=== PATIENT | male | born 1950 | race Caucasian/White ===

== ENCOUNTER 2021-03-20 17:09 | Emergency (ER) | payer MEDICARE, SELFPAY ==
--- NOTE | ~2021-03-20 | CT_ITS ---
EXAM: CT HEAD WITHOUT CONTRAST CT CERVICAL SPINE INDICATION: Reason for Exam s/p fall TECHNIQUE: A noncontrast CT scan was performed from the skull base to the vertex. A noncontrast CT scan of the cervical spine was performed from the base of the skull through T1. Coronal and sagittal reformats were obtained at the acquisition workstation. Dose length product is 1633 mGy-cm. COMPARISON: None FINDINGS: Head: No evidence of acute intracranial hemorrhage or extra-axial blood products. Cystic lesion within the right posterior fossa is most likely an arachnoid cyst. Periventricular and subcortical white matter hypodensities, a nonspecific finding but most commonly due to chronic small vessel ischemic disease. No evidence of territorial infarction. No evidence of midline shift. The ventricles are symmetric in configuration and basal cisterns are patent. The calvarium is intact. The pituitary parenchyma is prominent with thinning of the anterior wall of the sella turcica. Paranasal sinuses are otherwise clear. Mastoid air cells are well aerated and middle ear cavities are clear. Orbits are unremarkable. Cervical Spine: Cervical vertebral bodies are normal in height and alignment. Intervertebral disc spaces are preserved. Facet joints are anatomically aligned bilaterally. Spinous processes are intact and well aligned. No prevertebral soft tissue swelling. The atlantodens intervals within normal limits and demonstrates degenerative change. The craniocervical junction is unremarkable. Minimal degenerative changes throughout the cervical spine. No radiographic evidence of acute fracture or subluxation. Limited views of the lung apices are unremarkable. Paravertebral muscle planes are preserved. No cervical lymphadenopathy. Limited views of the thyroid are unremarkable. CT/CT cervical spine wo con IMPRESSION: 1. No evidence of acute intracranial abnormality. 2. Prominent pituitary parenchyma with thinning of the anterior wall of the sella turcica. This should be further characterized with MRI pituitary protocol. 3. Right posterior fossa arachnoid cyst. 4. Degenerative changes of the cervical spine without CT evidence of acute traumatic injury.
--- NOTE | 2021-03-20 07:46 | ECG_ITS ---
Test Reason : FALL Blood Pressure : / mmHG Vent. Rate : 068 BPM Atrial Rate : 068 BPM P-R Int : 178 ms QRS Dur : 094 ms QT Int : 464 ms P-R-T Axes : 055 003 042 degrees QTc Int : 493 ms Normal sinus rhythm Nonspecific ST abnormality Prolonged QT Abnormal ECG When compared with ECG of 11-JAN-2007 08:40, Nonspecific ST abnormality is now Present Referred By: Flash Bird Electronically Signed By:MARILYN TAN
[2021-03-20 17:17] VITALS: RESP 16; BMI 38.4
--- NOTE | 2021-03-20 17:21 | ED.ALCOHOL ---
HPI - Alcohol General Chief Complaint: ETOH/Substance Use Stated Complaint: FALL/ARM INJURY Time Seen by Provider: 03/20/21 17:21 Source: patient and EMS Mode of arrival: EMS Limitations: no limitations History of Present Illness HPI narrative: Patient toxic aerated brought by EMS for mechanical fall unwitnessed in cervical collar no other injuries noticed Related Data Allergies Allergy/AdvReac Type Severity Reaction Status Date / Time No Known Allergies Allergy Unverified 04/12/20 16:10 Review of Systems Review of Systems: Yes all other systems are reviewed and are negative [facility] Social History Social History Advance Directives: No Advance Directives Information Provided: No Physical Exam Vital Signs: Vital Signs: Last Vital Signs Temp 98 F 03/20/21 20:47 Pulse 65 03/20/21 20:47 Resp 18 03/20/21 20:47 BP 124/65 03/20/21 20:47 Pulse Ox 99 03/20/21 20:47 Body Mass Index 38.4 Const: General: no acute distress, well developed and intoxicated appearing Orientation/consciousness: patient oriented x3 HENMT: Head: Yes normocephalic, Yes atraumatic, No Mello's sign, No raccoon eyes and No scalp tenderness Ears: hearing grossly normal bilaterally Face and sinus: Yes normal facial exam Mouth: Normal oral and palatal mucosa present Eyes: General: appearance normal, both eyes and all related structures Neck: Neck: Yes full ROM and No tender Chest: Chest palpation & inspection: normal inspection of the chest and normal palpation of entire chest wall Resp: Effort & Inspection: normal respiratory effort and able to speak in complete sentences Auscultation: clear to auscultation bilaterally Cardio: Palpation: normal PMI Rate: regular rate Rhythm: regular rhythm Heart sounds: S1 normal heart sound present and S2 normal heart sound present Peripheral pulses: Peripheral pulses 2+ throughout GI: Inspection: Yes normal to inspection Palpation (GI): Soft to palpation and nontender Back/Spine/Pelvis: Cervical Spine: normal cervical lordosis Thoracic/Lumbar Spine: No thoracic spinal tenderness and No lumbar spinal tenderness Skin: General skin exam: no rashes or lesions noted Neuro: General: patient oriented x3, moves all extremities, no focal motor deficits and CN's II-XI intact bilaterally Extrem: General: Yes normal to inspection and Yes full ROM MDM - Alcohol MDM Narrative Medical decision making narrative: Patient's real mechanical fall intoxicated CT scan of the C-spine and head is negative for any acute patient during stay in the ER became sober able to ambulate in a steady gait will discharge patient home Differential Diagnosis Differential diagnosis: Likely alcohol intoxication Discharge Plan Discharge Clinical Impression: Alcoholic intoxication Patient Disposition: Home, Self-Care Instructions: Alcohol Intoxication (ED) Additional Instructions: Stop drinking alcohol and follow up with detox Interventions: ED Discharge Assessment Last Done: 03/20/21 22:40 Discharge Date/Time: 03/20/21 22:41
[2021-03-20 17:29] VITALS: BP 112/62; PULSE 72; RESP 16; TEMP 37.1; O2SAT 98
[2021-03-20 20:47] VITALS: BP 124/65; PULSE 65; RESP 18; TEMP 36.6; O2SAT 99
--- NOTE | 2021-03-20 22:05 | PC.NURSE ---
Patient ambulated, unsteady gait. WCTM
== END 2021-03-20 22:41 | disposition home or self-care (01) ==
PROVIDERS: Emergency Provider Internal Medicine
DX: S19.9XXA Unspecified injury of neck, initial encounter (principal); G44.309 Post-traumatic headache, unspecified, not intractable; F10.129 Alcohol abuse with intoxication, unspecified; W01.0XXA Fall on same level from slipping, tripping and stumbling without subsequent striking against object, initial encounter; Y93.9 Activity, unspecified; Y92.9 Unspecified place or not applicable; Y99.9 Unspecified external cause status; Y90.9 Presence of alcohol in blood, level not specified
CPT/HCPCS: 70450; 72125; 93005; 99284

== ENCOUNTER 2021-08-07 10:25 | Emergency (ER) | payer OTHER, SELFPAY ==
[2021-08-07 10:29] VITALS: BP 180/98; PULSE 91; RESP 19; TEMP 36.6; O2SAT 98; BMI 41.0
[2021-08-07 11:17] LABS: COVID-19 Test Positive (Negative); IDNOW Serial# 9DD0AD1C
== END 2021-08-07 14:49 | disposition left against medical advice (07) ==
PROVIDERS: Emergency Provider Emergency Medicine
DX: U07.1 COVID-19 (principal); R19.7 Diarrhea, unspecified; R51.9 Headache, unspecified; I10 Essential (primary) hypertension
CPT/HCPCS: 87635; 99282; 99283

== ENCOUNTER 2021-08-08 05:17 | Emergency (ER) | payer OTHER, SELFPAY ==
--- NOTE | ~2021-08-08 | XR_ITS ---
EXAMINATION: XR CHEST CLINICAL INFORMATION: Upper respiratory symptoms. Covid positive. COMPARISON: CT chest 04/26/2013 TECHNIQUE: Frontal view of the chest was obtained. FINDINGS: The cardiomediastinal silhouette is within normal limits. The lungs are well expanded. No consolidation or effusion. XR/XR chest 1V IMPRESSION: No acute pulmonary findings.
[2021-08-08 05:24] VITALS: BP 182/92; PULSE 87; RESP 15; TEMP 37; O2SAT 98; BMI 41.0
[2021-08-08 05:38] LABS: Basophils Percent Auto 0.5 % (0-2); Eosinophils Absolute Auto 0.4 X10*3/uL (0.0-0.4); Eosinophils Percent Auto 9.2 % (0-4); Hematocrit 36.7 % (42.0-52.0); Hemoglobin 11.2 g/dl (14.0-18.0); Imm Gran Abs Auto 0.01 X10*3/uL (0.00-0.03); Imm Gran Pct Auto 0.3 % (0.0-0.4); Lymphocytes Absolute Auto 1.4 X10*3/uL (1.2-4.9); Lymphocytes Percent Auto 35.6 % (20-40); MANUAL DIFF FLAG NO; Mean Corpuscular HGB Conc 30.5 g/dl (31.0-36.0); Mean Corpuscular Hemoglobin 24.1 pg (27.0-33.0); Mean Corpuscular Volume 78.9 fL (80.0-98.0); Mean Platelet Volume 8.6 fL (9.4-12.4); Monocytes Absolute Auto 0.6 X10*3/uL (0.1-1.2); Monocytes Percent Auto 15.3 % (2-11); Neutrophils Absolute Auto 1.5 x10*3/uL (2.0-8.3); Neutrophils Percent Auto 39.1 % (45-73); Platelet Count 185 X10*3/uL (160-400); Red Blood Count 4.65 X10*6/uL (4.60-5.80); Red Cell Distribution Width 17.3 % (11.0-16.0); White Blood Count 3.8 X10*3/uL (4.8-10.8)
[2021-08-08 05:55] LABS: Alanine Aminotransferase 32 U/L (0-40); Albumin Level 4.3 g/dL (3.5-5.0); Alkaline Phosphatase 63 U/L (39-117); Anion Gap 14 (12-20); Aspartate Amino Transferase 65 U/L (5-37); Bilirubin Total 0.8 mg/dL (0.0-1.0); Blood Urea Nitrogen 11 mg/dL (9-16); Calcium 9.2 mg/dL (8.4-10.2); Carbon Dioxide 22 mmol/L (22-29); Chloride 106 mmol/L (96-108); Creatinine Clr Calc Pharmacy 102.7; Estimated Glomerular Filt Rate > 60; Glucose Random 126 mg/dL (60-115); Potassium 4.1 mmol/L (3.3-5.1); Sodium 138 mmol/L (135-145)
--- NOTE | 2021-08-08 08:40 | ED_ITS ---
HPI - URI/Sore Throat General Chief Complaint: Upper Respiratory Symptoms Stated Complaint: COVID+ /12, headache, fever Time Seen by Provider: 08/08/21 08:04 Source: patient Mode of arrival: ambulatory History of Present Illness HPI Narrative: 71-year-old male with PMHx HTN, COVID-19 positive yesterday, presented to the ED complaining of subjective fever, headache, sore throat, nonproductive cough, and mild chest discomfort when coughing. Denies SOB, chills, ear pain, pedal edema, history of clots, recent travel MD elicited complaint: fever and sore throat Onset (ago): day(s) Consistency: constant Related Data Previous Rx's Medication Instructions Recorded benzonatate 200 mg capsule 200 mg PO TID PRN #20 cap 08/08/21 Allergies Allergy/AdvReac Type Severity Reaction Status Date / Time No Known Allergies Allergy Unverified 04/12/20 16:10 Review of Systems Review of Systems: Constitutional: +Subj Fever, No Chills ENT/Mouth: No Ear Pain, No Nasal Congestion, No Sinus Pain, No Hoarseness, + sore throat, + Rhinorrhea, No Swallowing Difficulty Cardiovascular: + Chest Pain when coughing, No SOB Respiratory: + Cough, No Sputum, No Wheezing Gastrointestinal: No Nausea, No Vomiting, No Diarrhea, No Abdominal pain Genitourinary:No Dysuria, No Urinary Frequency, No Hematuria, No Flank Pain Musculoskeletal: No joint pain, No Myalgias, No Joint Swelling Skin: No Skin Lesions, No rash Neuro: No Weakness Yes all other systems are reviewed and are negative [facility] Past Medical History Attestation statement: The following information was validated with the patient. Medical History HTN (hypertension) Social History Social History Advance Directives: Yes Advance Directives Information Provided: Yes Advance Directives on File: No Physical Exam Vital Signs: Vital Signs: Last Vital Signs Temp 98.6 F 08/08/21 05:24 Pulse 87 08/08/21 05:24 Resp 15 08/08/21 05:24 BP 182/92 H 08/08/21 05:24 Pulse Ox 98 01/13/22 05:24 BMI result Body Mass Index 41.0 Const: General: cooperative, healthy appearing and no acute distress Orientation/consciousness: patient oriented x3 Limitations: no limitations HENMT: Head: Yes normal to inspection Ears: hearing grossly normal bilaterally General nose exam: Normal external nose present Face and sinus: Yes normal facial exam Throat: Yes posterior oropharynx normal, Yes tonsils normal, Yes uvula midline and No peritonsillar mass Eyes: General: appearance normal, both eyes and all related structures EOM: EOMs intact bilaterally Neck: Neck: Yes normal visual inspection and Yes no meningeal signs Resp: Effort & Inspection: normal respiratory effort and no respiratory distress Auscultation: clear to auscultation bilaterally, no rales, no rhonchi and no wheezes Cardio: Rate: regular rate Heart sounds: S1 normal heart sound present and S2 normal heart sound present GI: Inspection: Yes normal to inspection Skin: Rashes: no rashes Wounds: no wounds Neuro: General: patient oriented x3 and no meningeal signs Gait exam (Neuro): Normal gait present Extrem: General: Yes normal to inspection and Yes no pedal edema Course Course Course Narrative: -0840--chronic leukopenia. H&H stable. Labs otherwise unremarkable XR chest 1V IMPRESSION: No acute pulmonary findings. >> results discussed with patient including worrisome signs and symptoms and strict return precautions. He verbalized understanding & feels safe for discharge home at this time MDM - URI/Sore Throat MDM Narrative Medical decision making narrative: 71-year-old male with PMHx HTN, COVID-19 positive yesterday, presented to the ED complaining of subjective fever, headache, sore throat, nonproductive cough, and mild chest discomfort when coughing. On exam vital signs stable, NAD, nontoxic appearing, lungs CTA, no pedal edema. Likely COVID-19 symptoms. Rule COVID pneumonia. Low concern for bacterial infection, or PE without tachycardia or hypoxia. Symptoms atypical for ACS Plan: EKG, labs, CXR Differential Diagnosis Differential diagnosis: Likely upper respiratory infection and viral infection Medical Records Attestation: I reviewed the patient's medical records. Lab Data Attestation: I reviewed the patient's lab results. Result diagrams: 08/08/21 05:33 08/08/21 05:33 Labs: Lab Results 01/13/22 01/13/22 Range/Units 05:33 05:33 WBC 3.8 L (4.8-10.8) X10*3/uL RBC 4.65 (4.60-5.80) X10*6/uL Hgb 11.2 L (14.0-18.0) g/dl Hct 36.7 L (42.0-52.0) % MCV 78.9 L (80.0-98.0) fL MCH 24.1 L (27.0-33.0) pg MCHC 30.5 L (31.0-36.0) g/dl RDW 17.3 H (11.0-16.0) % Plt Count 185 (160-400) X10*3/uL MPV 8.6 L (9.4-12.4) fL Immature Gran % (Auto) 0.3 (0.0-0.4) % Neut % (Auto) 39.1 L (45-73) % Lymph % (Auto) 35.6 (20-40) % Waller % (Auto) 15.3 H (2-11) % Eos % (Auto) 9.2 H (0-4) % Baso % (Auto) 0.5 (0-2) % Lymph # (Auto) 1.4 (1.2-4.9) X10*3/uL Waller # (Auto) 0.6 (0.1-1.2) X10*3/uL Eos # (Auto) 0.4 (0.0-0.4) X10*3/uL Baso # (Auto) 0.0 (0.0-0.2) X10*3/uL Abs Immat Gran (auto) 0.01 (0.00-0.03) X10*3/uL Absolute Neuts (auto) 1.5 L (2.0-8.3) x10*3/uL Absolute Nucleated RBC 0.000 (0.0-0.012) X10*3/uL Nucleated RBC % (auto) 0.0 (0.0-0.2) /100WBC Sodium 138 (135-145) mmol/L Potassium 4.1 (3.3-5.1) mmol/L Chloride 106 (96-108) mmol/L Carbon Dioxide 22 (22-29) mmol/L Anion Gap 14 (12-20) BUN 11 (9-16) mg/dL Creatinine 0.84 (0.5-1.4) mg/dL Estim Creat Clear Calc 102.7 Estimated GFR > 60 Random Glucose 126 H (60-115) mg/dL Calcium 9.2 (8.4-10.2) mg/dL Total Bilirubin 0.8 (0.0-1.0) mg/dL AST 65 H (5-37) U/L ALT 32 (0-40) U/L Alkaline Phosphatase 63 (39-117) U/L Total Protein 8.0 (6.5-8.0) g/dL Albumin 4.3 (3.5-5.0) g/dL ECG Data Attestation: I personally reviewed and interpreted this ECG as follows: ECG interpretation date: 08/08/21 ECG interpretation time: 08:57 Interpretation: EKG normal sinus rhythm rate of 72. Pr interval 152. QTC 460. No STEMI/nonischemic Discharge Plan Discharge Clinical Impression: COVID-19 Patient Disposition: Home, Self-Care Instructions: COVID-19 (Coronavirus Disease 2019) (ED) Additional Instructions: Your blood work and chest x-ray were unremarkable. At this time you will be okay for discharge. Please self isolate for 10-14 days. Do not expose yourself to others. You may not go to work or school. Please continue to follow cold instructions and wash your hands frequently. You may take Tylenol / Motrin as directed on the bottle for pain or fever. If you have constant or persistent shortness of breath, fever unresolved with medications, chest pain, or your unable to eat or drink please return to the ED CDC Guidelines for home isolation: - Stay away from others - WEAR A MASK if you are sick AND STAY HOME - Cover your mouth and nose with a tissue when you cough or sneeze. Dispose of tissues in a lined trash can and wash your hands immediately with soap and water for at least 20 seconds. If soap and water are not available, clean hands with alcohol-based hand fire code inspector that contains at least 60% alcohol. - Clean your hands often with soap and water for at least 20 seconds - Avoid touching your eyes, nose and mouth with unwashed hands - Do not share dishes, drinking glasses, cups, eating utensils, towels, or bedding with other people in your home. After using these items, wash them thoroughly with soap and water or put in the busperson. - Clean high-touch surfaces in your isolation area ( sick room and bathroom) every day; let a caregiver clean and disinfect high-touch surfaces in other areas of the home. Clean the area or item with soap and water or another detergent if it is dirty. Then, use a household disinfectant. - Limit contact with pets and animals: If you must care for a pet, wash your hands before and after interacting with them) Nava an?lisis de diego y la radiograf?a de t?rax fueron normales. En nataliia momento estar? usman para el madeleine. A?slese phi 10-14 d?as. No te expongas a los dem?s. Es posible que no vaya al trabajo ni a la escuela. Contin?e siguiendo las instrucciones en fr?o y l?vese las gene con frecuencia. Puede tigist Tylenol/Motrin oksana se indica en el frasco para el dolor o la fiebre. Si tiene dificultad para respirar lara o persistente, fiebre que no se resuelve con medicamentos, dolor en el pecho o no puede comer o beber, regrese al servicio de urgencias. Pautas de los CDC para el aislamiento en el hogar: - Mant?ngase alejado de los dem?s. - USE ASHLEY MASCARILLA si est? enfermo Y QU?DESE EN CASA - C?brase la boca y la nariz con un pa?uelo desechable al toser o estornudar. Deseche los pa?uelos en un bote de basura forrado y l?vese las gene inmediatamente con agua y jab?n phi al menos 20 segundos. Si no hay agua y jab?n disponibles, l?vese las gene con un desinfectante para gene a base de a lcohol que contenga al menos un 60 % de alcohol. - L?vese las gene con frecuencia con agua y jab?n phi al menos 20 segundos. - Evite tocarse los ojos, la nariz y la boca con las gene sin marquis - No comparta platos, vasos, tazas, utensilios para comer, toallas o ropa de cama con otras personas en nava hogar. Despu?s de usar estos art?culos, l?velos usman con agua y jab?n o col?quelos en el lavavajillas. - Limpie las superficies de alto contacto en nava ?aarti de aislamiento ( cuarto de enfermos y ba?o) todos los d?as; permita que un cuidador limpie y desinfecte las superficies de alto contacto en otras ?reas del hogar. Limpie el ?aarti o art?culo con agua y jab?n u otro detergente si est? sucio. Luego, use un desinfectante dom?stico. - Limite el contacto con mascotas y animales: si debe cuidar ashley mascota, l?vese las gene antes y despu?s de interactuar con ellos) Prescriptions: New benzonatate 200 mg capsule 200 mg PO TID PRN (Reason: cough) Qty: 20 RF: 0 Referrals: Physician,Unknown J [Primary Care Provider] - 3 days Print Language: Portuguese
--- NOTE | 2021-08-08 08:41 | ECG_ITS ---
Test Reason : chest pain Blood Pressure : / mmHG Vent. Rate : 072 BPM Atrial Rate : 072 BPM P-R Int : 152 ms QRS Dur : 092 ms QT Int : 428 ms P-R-T Axes : 033 056 017 degrees QTc Int : 468 ms Normal sinus rhythm Normal ECG When compared with ECG of 20-MAR-2021 18:11, No significant change was found Referred By: Rosa Maria Vila Electronically Signed By:NOEMY FORD
--- NOTE | 2021-08-08 09:45 | PC.NURSE ---
PT EVALUATED BY PROVIDER. EKG COMPLETED XRAY COMPLETED. PT AWAKE, ALERT AND ORIENTED X3. SKIN WARM AND DRY. RESP UNLABORED. SPEAKING IN FULL CLEAR SENTENCES. NO SOB, NO RESP DISTRESS. PLAN IS FOR DC HOME. PT AGREEABLE TO PLAN.
== END 2021-08-08 09:50 | disposition home or self-care (01) ==
PROVIDERS: Emergency Provider Emergency Medicine
DX: U07.1 COVID-19 (principal); I10 Essential (primary) hypertension
CPT/HCPCS: 36415; 71045; 80053; 85025; 93005; 99283

== ENCOUNTER 2021-12-02 06:23 | Emergency (ER) | payer OTHER, SELFPAY ==
--- NOTE | ~2021-12-02 | CT_ITS ---
EXAMINATION: CT ABDOMEN AND PELVIS WITHOUT CONTRAST CLINICAL INFORMATION: Back pain. Abnormal aorta on lumbar spine x-ray. COMPARISON: Previous lumbar spine x-ray from earlier the same day TECHNIQUE: Multidetector volumetric imaging was performed from the superior aspect of the liver through the pubic symphysis. Sagittal and coronal reformatted images were obtained on the technologist's workstation. This CT examination was performed using dose optimization techniques as appropriate, variously including the following: *Automated exposure control *Adjustment of mA and/or kV according to patient size (this includes techniques or standardized protocols for targeted exams where dose is matched to indication/reason for exam; i.e. extremities or head) *Use of iterative reconstruction technique DLP: 1198 mGy-cm FINDINGS: LUNG BASES: The visualized lung bases are clear. The heart is enlarged. LIVER, GALLBLADDER, AND BILIARY TREE: The contour of the liver is slightly irregular and scalloped suggestive of mild cirrhotic change. No focal liver lesion. Normal gallbladder. No biliary duct dilatation. PANCREAS: Unremarkable. SPLEEN: Upper normal in size measuring 13 cm in length. ADRENAL GLANDS: Unremarkable. KIDNEYS AND URETERS: 2 cm low-attenuation lesion in the lower pole probably representing a cyst. No imaging follow-up. BLADDER: Not optimally distended. The prostate gland is enlarged and protrudes into the base of the bladder. It is difficult to exclude mild diffuse bladder wall thickening. GASTROINTESTINAL TRACT: The appendix is enlarged and measures 1.5 cm in diameter. The appendix is heterogeneous in attenuation. There is stranding of the periappendiceal fat. There are prominent small bowel mesentery lymph nodes or periappendiceal lymph nodes seen in the right lower quadrant. The small and large bowel is unremarkable. The appendix is unremarkable. No ascites or free air is seen. ABDOMINAL WALL: There is diastasis of the rectus muscles. There is a small right inguinal hernia containing fat LYMPH NODES: Normal. VASCULAR: There is atherosclerotic disease of the abdominal aorta. No aneurysm is seen. There is mild ectasia of the abdominal aorta measuring maximum 2.6 cm. There is ectasia of the bilateral common iliac arteries measuring 1.8 cm on the right and 1.7 cm on the left. PELVIC VISCERA: The prostate gland is enlarged. The prostate gland measures 5.7 x 5.4 cm in AP and transverse dimension. OSSEOUS STRUCTURES: There is a mild to moderate recent appearing L1 vertebral body compression fracture. There are degenerative changes of the spine. CT/CT abdomen pelvis wo con IMPRESSION: No abdominal aortic aneurysm. Ectasia of the bilateral common iliac arteries. Abnormal appearing appendix. Appendicitis and neoplastic process involving the appendix should be considered. Mild to moderate recent appearing L1 vertebral body compression fracture. Enlarged prostate gland that protrudes into the base of the bladder. Left renal cyst. Mild cirrhotic changes of the liver. Findings were communicated to Dr. Con Chapin by telephone on 12/02/2021 at 11:00 AM. Fleischner guidelines were followed.
--- NOTE | ~2021-12-02 | XR_ITS ---
EXAMINATION: XR LUMBOSACRAL SPINE CLINICAL INFORMATION: Back pain. COMPARISON: CT of the chest done on 04/26/2013. TECHNIQUE: Three views of the lumbosacral spine. FINDINGS: Severe compression fracture of L1 vertebral body, new since prior study dated 04/26/2013, of indeterminate etiology and chronicity. There is subtle radiographic evidence of retropulsion present involving the posterior superior aspect of the vertebral body. The posterior appendages appear to be intact. The paraspinal soft tissues are unremarkable. Mild diffuse osteopenia and mild-moderate degenerative disc disease related changes are present throughout the entire lumbar spine. Partially visualized aorta appears abnormally enlarged and shows atherosclerotic calcifications, not optimally included within the [id number], accordingly the size of the aorta is not evaluated. XR/XR lumbar spine 2-3V IMPRESSION: 1. Severe compression fracture of L1 vertebral body, new since prior study dated 04/26/2013, of indeterminate etiology and chronicity. 2. Mild diffuse osteopenia and mild to moderate degenerative spondylosis. 3. Abnormal appearance of the partially included aorta, the size of the aorta is not evaluated since not optimally included within the [id number].
[2021-12-02 06:46] VITALS: BP 170/100; BP 183/89; PULSE 70; PULSE 90; RESP 16; TEMP 36.8; O2SAT 97; BMI 35.8
[2021-12-02 07:07] VITALS: BP 160/84; PULSE 79; RESP 18; TEMP 37.2; O2SAT 97
--- NOTE | 2021-12-02 07:07 | ED.BACK ---
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 Low back pain started 10 days ago, pain is described as dull aching pain localized to the lower lumbar back area, patient declined any recent trauma or falls, pain is localized to the low back radiating to the right knee area, declined any urinary or stool incontinence, no weakness, no numbness or sensation change in the legs. No fever, no chills, no abdominal pain, normal bowel movement, no dysuria, no urinary frequency. Normally ambulate at home using a cane. He did not try any [id number] medication to control his pain. Related Data Previous Rx's Medication Instructions Recorded benzonatate 200 mg capsule 200 mg PO TID PRN #20 cap 08/08/21 Allergies Allergy/AdvReac Type Severity Reaction Status Date / Time No Known Allergies Allergy Unverified 04/12/20 16:10 Review of Systems Review of Systems: All other systems are reviewed and are negative Constitutional: Reports as per HPI and Reports no additional constitutional complaints Eyes: Reports as per HPI and Reports no additional eye complaints Reports system reviewed and no additional complaints, except as documented Cardiovascular: Reports as per HPI and Reports no additional cardiovascular complaints Respiratory: Reports as per HPI and Reports no additional respiratory complaints Gastrointestinal: Reports as per HPI and Reports no additional gastrointestinal complaints Genitourinary: Reports no additional female genitourinary complaints Musculoskeletal: Reports no additional musculoskeletal complaints Skin/Breast: Reports system reviewed and no additional complaints, except as docu Psychiatric: Reports no additional psychiatric complaints Endocrine: Reports no additional endocrine complaints Hematologic/Lymphatic: Reports no additional hematologic/lymphatic complaints Allergic/Immunologic: Reports no additional allergic/immunologic complaints Reports system reviewed and no additional complaints, except as documented and Reports Abnormal speech present [facility] Past Medical History Medical History (Updated 12/02/21 @ 12:30 by Socorro Auguste MD) Abnormal CT scan, gastrointestinal tract HTN (hypertension) Social History Social History Advance Directives: No Advance Directives Information Provided: No Physical Exam Vital Signs: Vital Signs: Last Vital Signs Temp 98.9 F 12/02/21 12:09 Pulse 75 12/02/21 12:09 Resp 18 12/02/21 12:09 BP 145/83 H 12/02/21 12:09 Pulse Ox 97 12/02/21 12:09 BMI result Body Mass Index 35.8 Vital signs have been reviewed as appeared to be correct. Blood pressure normal. Heart rate normal. Respiration rate normal. Temperature normal. Oxygen saturation normal. Appearance: Alert. Oriented X3. No acute distress. Head: Normal external exam. Normocephalic. Atraumatic. No Mello signs noted. No raccoon eyes noted Eyes: PERRLA. EOMI. Conjunctiva and sclera normal. Eyelids normal. ENT: TM's Normal. Pharynx normal. Uvula midline. Moist mucous membranes. No trismus noted. No drooling noted. No muffled voice noted. Neck: Normal inspection. Neck supple. FROM. No adenopathy. Thyroid Normal. No meningeal signs. No neck mass noted. CVS: Normal heart rate and rhythm. Heart sound normal. No murmurs noted. Pulses normal throughout. Respiratory: No respiratory distress. Painless inspiration. Breath sounds normal. No wheezes/rales/rhonchi noted. Chest nontender. No accessory muscle usage noted or decreased air movement noted. Abdomen: Soft and nontender. Bowel sounds normal in all 4 quadrants. No distention noted. No organomegaly noted. No visible injury noted. Back: No CVA tenderness. Full range of motion noted. Skin: Skin warm and dry. Normal skin color. Normal skin turgor. No rashes/lesions/lacerations noted. Extremities: No lower extremity edema. Extremities exhibit normal range of motion. Extremities nontender. Neuro: Oriented X 3. Cranial nerve exam: II-XII are grossly intact No motor deficit. No sensory deficit. Reflexes normal. Perianal sensation is intact Course Course Course Narrative: Assessment and plan. 71-year-old male came in with low back pain for 10 days, x-ray and CT showed multiple lumbar spine compression fracture, patient also showed abnormal appendix on the CT, patient was evaluated by Dr. Conklin from surgery in the emergency department and he recommended to discharge patient home and follow up as an outpatient. Patient has a normal neuro exam, no neuro deficit. Recommended NSAIDs/Tylenol p.r.n. pain. MDM - Back Pain/Injury Medical Records Attestation: I reviewed the patient's medical records. Lab Data Attestation: I reviewed the patient's lab results. Result diagrams: 12/02/21 07:48 12/02/21 07:48 Labs: Lab Results 12/02/21 12/02/21 12/02/21 Range/Units 07:48 07:48 07:51 WBC 5.9 (4.8-10.8) X10*3/uL RBC 4.24 L (4.60-5.80) X10*6/uL Hgb 10.4 L (14.0-18.0) g/dl Hct 32.9 L (42.0-52.0) % MCV 77.6 L (80.0-98.0) fL MCH 24.5 L (27.0-33.0) pg MCHC 31.6 (31.0-36.0) g/dl RDW 16.8 H (11.0-16.0) % Plt Count 228 (160-400) X10*3/uL MPV 10.1 (9.4-12.4) fL Immature Gran % (Auto) 0.3 (0.0-0.4) % Neut % (Auto) 71.5 (45-73) % Lymph % (Auto) 13.3 L (20-40) % [place] % (Auto) 11.9 H (2-11) % Eos % (Auto) 2.7 (0-4) % Baso % (Auto) 0.3 (0-2) % Lymph # (Auto) 0.8 L (1.2-4.9) X10*3/uL [place] # (Auto) 0.7 (0.1-1.2) X10*3/uL Eos # (Auto) 0.2 (0.0-0.4) X10*3/uL Baso # (Auto) 0.0 (0.0-0.2) X10*3/uL Abs Immat Gran (auto) 0.02 (0.00-0.03) X10*3/uL Absolute Neuts (auto) 4.2 (2.0-8.3) x10*3/uL Absolute Nucleated RBC 0.000 (0.0-0.012) X10*3/uL Nucleated RBC % (auto) 0.0 (0.0-0.2) /100WBC Sodium 134 L (135-145) mmol/L Potassium 4.2 (3.3-5.1) mmol/L Chloride 101 (96-108) mmol/L Carbon Dioxide 24 (22-29) mmol/L Anion Gap 13 (12-20) BUN 8 L (9-16) mg/dL Creatinine 0.67 (0.5-1.4) mg/dL Estim Creat Clear Calc 119.8 Estimated GFR > 60 Random Glucose 118 H (60-115) mg/dL Calcium 8.9 (8.4-10.2) mg/dL Lipase 19 (8-78) U/L Urine Color YELLOW Urine Appearance HAZY Urine pH 6.0 (5.0-8.0) Ur Specific [place] >= 1.030 H (1.005-1.025) Urine Protein NEG (NEG-TRACE) MG/DL Urine Glucose (UA) NEG (NEG) MG/DL Urine Ketones 5 (NEG) MG/DL Urine Blood 2+ H (NEG) Urine Nitrite NEG (NEG) Ur Leukocyte Esterase NEG (NEG) Urine RBC 10-14 H (0) /HPF Urine WBC 0 (0-4) /HPF Ur Squamous Epith Cells 1+ /LPF Urine Bacteria NONE /LPF Urine Mucus 1+ /LPF Imaging Data Lumbar spine x-ray: Attestation: I personally reviewed and interpreted this imaging study as follows: Radiologist's impression: 1. Severe compression fracture of L1 vertebral body, new since prior study dated 04/26/2013, of indeterminate etiology and chronicity. 2. Mild diffuse osteopenia and mild to moderate degenerative spondylosis. 3. Abnormal appearance of the partially included aorta, the size of the aorta is not evaluated since not optimally included within the [id number]. CT scan - abdomen: Attestation: I personally reviewed and interpreted this imaging study as follows: Radiologist's impression: No abdominal aortic aneurysm. Ectasia of the bilateral common iliac arteries. Abnormal appearing appendix. Appendicitis and neoplastic process involving the appendix should be considered. Mild to moderate recent appearing L1 vertebral body compression fracture. Enlarged prostate gland that protrudes into the base of the bladder. Left renal cyst. Mild cirrhotic changes of the liver.? ? Discharge Plan Discharge Clinical Impression: Abnormal CT scan, gastrointestinal tract, Back pain, Closed compression fracture of L1 vertebra Patient Disposition: Home, Self-Care Instructions: Acute Low Back Pain (ED) Prescriptions: No Action benzonatate 200 mg capsule 200 mg PO TID PRN (Reason: cough) Qty: 20 0RF Referrals: Physician,Unknown J [Primary Care Provider] - Silviano Conklin MD [Physician] -
[2021-12-02] MEDS: Acetaminophen 325 MG TABLET 650 MG PO (07:16)
[2021-12-02 08:03] LABS: MANUAL DIFF FLAG NO
[2021-12-02 08:06] LABS: Appearance Urine HAZY; Color Urine YELLOW; Glucose Urine UA NEG (NEG); Leukocyte Esterase Urine NEG (NEG); Nitrite Urine NEG (NEG); Specific Gravity - Urine >= 1.030 (1.005-1.025); UACC Culture Trigger NO; Urine Blood 2+ (NEG); Urine Ketones 5 MG/DL (NEG); Urine Protein NEG (NEG-TRACE)
[2021-12-02 08:07] LABS: Basophils Percent Auto 0.3 % (0-2); Eosinophils Absolute Auto 0.2 X10*3/uL (0.0-0.4); Eosinophils Percent Auto 2.7 % (0-4); Hematocrit 32.9 % (42.0-52.0); Hemoglobin 10.4 g/dl (14.0-18.0); Imm Gran Abs Auto 0.02 X10*3/uL (0.00-0.03); Imm Gran Pct Auto 0.3 % (0.0-0.4); Lymphocytes Absolute Auto 0.8 X10*3/uL (1.2-4.9); Lymphocytes Percent Auto 13.3 % (20-40); Mean Corpuscular HGB Conc 31.6 g/dl (31.0-36.0); Mean Corpuscular Hemoglobin 24.5 pg (27.0-33.0); Mean Corpuscular Volume 77.6 fL (80.0-98.0); Mean Platelet Volume 10.1 fL (9.4-12.4); Monocytes Absolute Auto 0.7 X10*3/uL (0.1-1.2); Monocytes Percent Auto 11.9 % (2-11); Neutrophils Absolute Auto 4.2 x10*3/uL (2.0-8.3); Neutrophils Percent Auto 71.5 % (45-73); Platelet Count 228 X10*3/uL (160-400); Red Blood Count 4.24 X10*6/uL (4.60-5.80); Red Cell Distribution Width 16.8 % (11.0-16.0); White Blood Count 5.9 X10*3/uL (4.8-10.8)
[2021-12-02 08:19] LABS: Anion Gap 13 (12-20); Blood Urea Nitrogen 8 mg/dL (9-16); Calcium 8.9 mg/dL (8.4-10.2); Carbon Dioxide 24 mmol/L (22-29); Chloride 101 mmol/L (96-108); Creatinine Clr Calc Pharmacy 119.8; Estimated Glomerular Filt Rate > 60; Glucose Random 118 mg/dL (60-115); Lipase 19 U/L (8-78); Potassium 4.2 mmol/L (3.3-5.1); Sodium 134 mmol/L (135-145)
[2021-12-02 08:19] LABS: Mucus Urine 1+ /LPF; Squamous Epithelial Cell Urine 1+ /LPF; WBC Urine 0 /HPF (0-4)
[2021-12-02 09:21] VITALS: BP 169/93; PULSE 76; RESP 19; TEMP 37.2; O2SAT 95
[2021-12-02 10:45] VITALS: BP 174/83; PULSE 72; RESP 16
[2021-12-02 12:09] VITALS: BP 145/83; PULSE 75; RESP 18; TEMP 37.2; O2SAT 97
--- NOTE | 2021-12-02 12:09 | PM.CNGS ---
History of Present Illness Consult details Consult date: 12/02/21 Narrative: 71-year-old male referred for an abnormal CT scan of the abdomen. He actually came to the emergency room early this morning because of low back pain. He does have a long history of chronic back pain and feels that this has been worsening the past 3 weeks or so. He does walk with a cane normally at home but feels that he has more difficulty with walking now. He had a CAT scan of the abdomen showing an abnormal appendix and I was therefore consulted. He currently denies any abdominal pain. He denies any diarrhea constipation or any altered bowel habits. He denies any new nausea or vomiting. he denies any fever or chills. Review of Systems Constitutional: Constitutional: Denies chills and Denies fever(s) Cardiovascular: Cardiovascular: Denies chest pain, Denies dyspnea and Denies dyspnea on exertion Respiratory: Respiratory: Denies cough, Denies dyspnea and Denies dyspnea on exertion Gastrointestinal: Gastrointestinal: Denies hematochezia and Denies change in bowel habits Genitourinary: Genitourinary: Denies hematuria and Denies difficulty urinating Musculoskeletal: Musculoskeletal: Reports back pain and Reports limited range of motion Neurologic: Denies focal weakness and Denies convulsions Psychiatric: Psychiatric: Denies depression and Denies mood swings PMF Past Medical History Medical History (Updated 12/02/21 @ 12:13 by Silviano Conklin MD) Abnormal CT scan, gastrointestinal tract HTN (hypertension) Social History Social History Advance Directives: No Advance Directives Information Provided: No Meds Allergies Allergy/AdvReac Type Severity Reaction Status Date / Time No Known Allergies Allergy Unverified 04/12/20 16:10 Physical Exam Vital Signs: Vital Signs: Last Vital Signs Temp 98.9 F 12/02/21 09:21 Pulse 72 12/02/21 10:45 Resp 16 12/02/21 10:45 BP 174/83 H 12/02/21 10:45 Pulse Ox 95 12/02/21 09:21 BMI result Body Mass Index 35.8 Const: Other: Appears overweight, General: comfortable and no acute distress Orientation/consciousness: patient oriented x3 Neck: Neck: Yes no lymphadenopathy Resp: Auscultation: clear to auscultation bilaterally Cardio: Rhythm: regular rhythm GI: Other: no tenderness even with very deep palpation the right lower quadrant and lower abdomen Palpation (GI): Soft to palpation, nontender and no guarding Neuro: General: patient oriented x3 Results Labs Result diagrams: 12/02/21 07:48 12/02/21 07:48 Labs: Abnormal lab results 12/02/21 12/02/21 12/02/21 Range/Units 07:48 07:48 07:51 RBC 4.24 L (4.60-5.80) X10*6/uL Hgb 10.4 L (14.0-18.0) g/dl Hct 32.9 L (42.0-52.0) % MCV 77.6 L (80.0-98.0) fL MCH 24.5 L (27.0-33.0) pg RDW 16.8 H (11.0-16.0) % Lymph % (Auto) 13.3 L (20-40) % [place] % (Auto) 11.9 H (2-11) % Lymph # (Auto) 0.8 L (1.2-4.9) X10*3/uL Sodium 134 L (135-145) mmol/L BUN 8 L (9-16) mg/dL Random Glucose 118 H (60-115) mg/dL Ur Specific [place] >= 1.030 H (1.005-1.025) Urine Blood 2+ H (NEG) Urine RBC 10-14 H (0) /HPF Short CBC 12/02/21 Range/Units 07:48 WBC 5.9 (4.8-10.8) X10*3/uL Hgb 10.4 L (14.0-18.0) g/dl Hct 32.9 L (42.0-52.0) % Plt Count 228 (160-400) X10*3/uL BMP 12/02/21 07:48 Sodium 134 L Potassium 4.2 Chloride 101 Carbon Dioxide 24 BUN 8 L Creatinine 0.67 Calcium 8.9 Urine 12/02/21 Range/Units 07:51 Urine Color YELLOW Urine Appearance HAZY Urine pH 6.0 (5.0-8.0) Ur Specific [place] >= 1.030 H (1.005-1.025) Urine Protein NEG (NEG-TRACE) MG/DL Urine Glucose (UA) NEG (NEG) MG/DL All other labs normal. Imaging Abdomen CT scan report/results: report reviewed and image reviewed CT scan - pelvis: report reviewed and image reviewed Additional studies: Laboratory Results WBC 5.9 X10*3/uL (4.8-10.8) 12/02/21 07:48 RBC 4.24 X10*6/uL (4.60-5.80) L 12/02/21 07:48 Hgb 10.4 g/dl (14.0-18.0) L 12/02/21 07:48 Hct 32.9 % (42.0-52.0) L 12/02/21 07:48 MCV 77.6 fL (80.0-98.0) L 12/02/21 07:48 MCH 24.5 pg (27.0-33.0) L 12/02/21 07:48 MCHC 31.6 g/dl (31.0-36.0) 12/02/21 07:48 RDW 16.8 % (11.0-16.0) H 12/02/21 07:48 Plt Count 228 X10*3/uL (160-400) 12/02/21 07:48 MPV 10.1 fL (9.4-12.4) 12/02/21 07:48 Immature Gran % (Auto) 0.3 % (0.0-0.4) 12/02/21 07:48 Neut % (Auto) 71.5 % (45-73) 12/02/21 07:48 Lymph % (Auto) 13.3 % (20-40) L 12/02/21 07:48 [place] % (Auto) 11.9 % (2-11) H 12/02/21 07:48 Eos % (Auto) 2.7 % (0-4) 12/02/21 07:48 Baso % (Auto) 0.3 % (0-2) 12/02/21 07:48 Lymph # (Auto) 0.8 X10*3/uL (1.2-4.9) L 12/02/21 07:48 [place] # (Auto) 0.7 X10*3/uL (0.1-1.2) 12/02/21 07:48 Eos # (Auto) 0.2 X10*3/uL (0.0-0.4) 12/02/21 07:48 Baso # (Auto) 0.0 X10*3/uL (0.0-0.2) 12/02/21 07:48 Abs Immat Gran (auto) 0.02 X10*3/uL (0.00-0.03) 12/02/21 07:48 Absolute Neuts (auto) 4.2 x10*3/uL (2.0-8.3) 12/02/21 07:48 Absolute Nucleated RBC 0.000 X10*3/uL (0.0-0.012) 12/02/21 07:48 Nucleated RBC % (auto) 0.0 /100WBC (0.0-0.2) 12/02/21 07:48 Sodium 134 mmol/L (135-145) L 12/02/21 07:48 Potassium 4.2 mmol/L (3.3-5.1) 12/02/21 07:48 Chloride 101 mmol/L (96-108) 12/02/21 07:48 Carbon Dioxide 24 mmol/L (22-29) 12/02/21 07:48 Anion Gap 13 (12-20) 12/02/21 07:48 BUN 8 mg/dL (9-16) L 12/02/21 07:48 Creatinine 0.67 mg/dL (0.5-1.4) 12/02/21 07:48 Estim Creat Clear Calc 119.8 12/02/21 07:48 Estimated GFR > 60 12/02/21 07:48 Random Glucose 118 mg/dL (60-115) H 12/02/21 07:48 Calcium 8.9 mg/dL (8.4-10.2) 12/02/21 07:48 Lipase 19 U/L (8-78) 12/02/21 07:48 Urine Color YELLOW 12/02/21 07:51 Urine Appearance HAZY 12/02/21 07:51 Urine pH 6.0 (5.0-8.0) 12/02/21 07:51 Ur Specific [place] >= 1.030 (1.005-1.025) H 12/02/21 07:51 Urine Protein NEG MG/DL (NEG-TRACE) 12/02/21 07:51 Urine Glucose (UA) NEG MG/DL (NEG) 12/02/21 07:51 Urine Ketones 5 MG/DL (NEG) 12/02/21 07:51 Urine Blood 2+ (NEG) H 12/02/21 07:51 Urine Nitrite NEG (NEG) 12/02/21 07:51 Ur Leukocyte Esterase NEG (NEG) 12/02/21 07:51 Urine RBC 10-14 /HPF (0) H 12/02/21 07:51 Urine WBC 0 /HPF (0-4) 12/02/21 07:51 Ur Squamous Epith Cells 1+ /LPF 12/02/21 07:51 Urine Bacteria NONE /LPF 12/02/21 07:51 Urine Mucus 1+ /LPF 12/02/21 07:51 Impressions Lumbar Spine X-Ray 12/02/21 08:05 IMPRESSION: 1. Severe compression fracture of L1 vertebral body, new since prior study dated 04/26/2013, of indeterminate etiology and chronicity. 2. Mild diffuse osteopenia and mild to moderate degenerative spondylosis. 3. Abnormal appearance of the partially included aorta, the size of the aorta is not evaluated since not optimally included within the [id number]. Abdomen/Pelvis CT 12/02/21 10:00 IMPRESSION: No abdominal aortic aneurysm. Ectasia of the bilateral common iliac arteries. Abnormal appearing appendix. Appendicitis and neoplastic process involving the appendix should be considered. Mild to moderate recent appearing L1 vertebral body compression fracture. Enlarged prostate gland that protrudes into the base of the bladder. Left renal cyst. Mild cirrhotic changes of the liver. Findings were communicated to Dr. Con Chapin by telephone on 12/02/2021 at 11:00 AM. Fleischner guidelines were followed. Assessment and Plan (1) Abnormal CT scan, gastrointestinal tract: Status: Acute He had a CAT scan of the abdomen early this morning. I had reviewed the images with the radiologist Dr. Brandy Meek. She describes what appears to be a distended appendix with some total inflammatory changes around this with fat stranding. This may represent a neoplastic process. He currently denies any pain or tenderness even with very deep palpation. He denies any GI complaints so it is unlikely that he has any acute inflammatory process ongoing in the appendix. He may be worked up for this normal appendix on CT scan as an outpatient. I can see him in the office for this. We may need to schedule him for a follow-up CT scan down the line or even a colonoscopy. Again, overall clinical picture does not suggest any acute appendicitis. I have discussed the above with the emergency room physician. He does have a L1 several compression fractures so this may explain his back pain. Procedures Date of Service Date of Service: 12/02/21
--- NOTE | 2021-12-02 12:41 | PC.NURSE ---
Patient ambulated hallway distance-about 40 ft independently-gait is steady. Patient reports pain in his back improved-4/10 at present.
== END 2021-12-02 12:51 | disposition home or self-care (01) ==
PROVIDERS: Emergency Provider Emergency Medicine
DX: M48.56XA Collapsed vertebra, not elsewhere classified, lumbar region, initial encounter for fracture (principal); R93.3 Abnormal findings on diagnostic imaging of other parts of digestive tract; I10 Essential (primary) hypertension
CPT/HCPCS: 36415; 72100; 74176; 80048; 81001; 83690; 85025; 99284

== ENCOUNTER → 2022-03-26 09:02 | Outpatient (BNVA) | payer OTHER, SELFPAY | PROVIDERS: PCP Internal Medicine; Visit Provider Surgery | DX: R93.3 Abnormal findings on diagnostic imaging of other parts of digestive tract (principal) | CPT/HCPCS: 99212 ==

== ENCOUNTER 2023-02-17 09:26 | Outpatient (REF) | payer OTHER, SELFPAY ==
[2023-02-17 11:19] LABS: MANUAL DIFF FLAG NO
[2023-02-17 11:54] LABS: Basophils Percent Auto 0.3 % (0-2); Eosinophils Absolute Auto 0.3 X10*3/uL (0.0-0.4); Eosinophils Percent Auto 4.5 % (0-4); Hematocrit 41.1 % (42.0-52.0); Hemoglobin 13.5 g/dl (14.0-18.0); Imm Gran Abs Auto 0.02 X10*3/uL (0.00-0.03); Imm Gran Pct Auto 0.3 % (0.0-0.4); Lymphocytes Absolute Auto 1.8 X10*3/uL (1.2-4.9); Lymphocytes Percent Auto 25.8 % (20-40); Mean Corpuscular HGB Conc 32.8 g/dl (31.0-36.0); Mean Corpuscular Hemoglobin 30.7 pg (27.0-33.0); Mean Corpuscular Volume 93.4 fL (80.0-98.0); Mean Platelet Volume 9.2 fL (9.4-12.4); Monocytes Absolute Auto 1.1 X10*3/uL (0.1-1.2); Monocytes Percent Auto 15.1 % (2-11); Neutrophils Absolute Auto 3.8 x10*3/uL (2.0-8.3); Platelet Count 189 X10*3/uL (160-400); Red Cell Distribution Width 13.8 % (11.0-16.0); White Blood Count 6.9 X10*3/uL (4.8-10.8)
[2023-02-17 12:09] LABS: Estimated Average Glucose 100 mg/dL; Hemoglobin A1c % 5.1 %
[2023-02-17 13:09] LABS: Anion Gap 10 (12-20); Blood Urea Nitrogen 12 mg/dL (9-16); Calcium 9.4 mg/dL (8.4-10.2); Carbon Dioxide 26 mmol/L (22-29); Chloride 106 mmol/L (96-108); Cholesterol 166 mg/dL; Estimated Glomerular Filt Rate > 60; Glucose Random 102 mg/dL (60-115); HDL Cholesterol 65 mg/dL; Iron 133 mcg/dL (45-160); LDL Cholesterol Calculated 81 mg/dl; Percent Iron Saturation 39 % (15-50); Potassium 4.3 mmol/L (3.3-5.1); Sodium 138 mmol/L (135-145); Total Iron Binding Capacity 342 mcg/dL (228-428); Triglycerides 104 mg/dL; Unsaturated Iron Binding 209 ug/dL
[2023-02-17 13:10] LABS: Ferritin 101 ng/mL (20-250); Vitamin D 25-OH Total 28.1 ng/mL (>30)
[2023-02-17 14:07] LABS: B Type Natriuretic Peptide 93 pg/mL (<100)
== END 2023-02-17 09:27 | disposition home or self-care (01) ==
LOC: HO.HHCL 09:26
PROVIDERS: Visit Provider Nurse Practitioner Primary Care
DX: I10 Essential (primary) hypertension (principal); D50.9 Iron deficiency anemia, unspecified; E78.00 Pure hypercholesterolemia, unspecified; R60.0 Localized edema; E55.9 Vitamin D deficiency, unspecified; R73.02 Impaired glucose tolerance (oral)
CPT/HCPCS: 36415; 80048; 80061; 82306; 82728; 83036; 83540; 83880; 85025

== ENCOUNTER → 2023-08-04 13:39 | Outpatient (REF) | payer OTHER, SELFPAY ==
--- NOTE | 2023-08-04 13:44 | CA_ITS ---
Transthoracic Echocardiogram Patient (Last, First, Middle): Cristian Gann, Gender: Male Date of : 1950 Age: 73 Procedure Date: 08/04/2023 Procedure Type: Transthoracic Echocardiogram Location: OP Height: 172.72 cm Weight: 122.47 kg BSA: 2.32 m2 Heart Rate: bpm BP: 145 / 90 mmHg Ultrasonic Solderer: UMU Referring MD: Sonal Patel NP Immersion Metal Cleaner: Oscar Read MD Symptoms: Study Quality: Fair ECG Rhythm: Sinus Conclusions: - 1. Normal LV ejection fraction of 60 65% with mild LVH with impaired relaxation filling pattern 2. Mildly dilated left atrium 3. Mild aortic stenosis 4. Mild to moderate enlargement of ascending aorta at 4.4 cm 5. Normal RV systolic pressure 6. No gross pericardial effusion Findings Left Ventricle Normal left ventricular size and systolic function. There is mildly increased left ventricular wall thickness. The visually estimated ejection fraction is between 60-65%. Spectral Doppler is indicative of an impaired relaxation filling pattern. E/E prime ratio is between 8 and 15 consistent with indeterminate filling pressures. Right Ventricle Normal right ventricular cavity size and systolic function. Atria The left atrium is mildly dilated. Interatrial shunt cannot be excluded. The right atrium is likely dilated. Aortic Valve There is mild calcification of the aortic valve. There is mild thickening of the aortic valve. There is mild aortic valve stenosis. The peak aortic gradient is 23 mmHg.The mean gradient is 13 mmHg. The aortic valve area is 1.56 cm2. There is trace (trivial) aortic valve regurgitation. Mitral Valve There is mild anterior and posterior mitral leaflet thickening. There is mild mitral annular calcification. There is trace mitral valve regurgitation. There is no mitral valve stenosis. Pulmonic Valve The pulmonic valve was not well visualized. Tricuspid Valve Likely normal tricuspid valve structure and function. Tricuspid regurgitation envelope is inadequate for calculation of right ventricular systolic pressure. Normal right atrial pressure. Great Vessels The pulmonary artery was not well visualized. There is mild dilatation of the ascending aorta measuring 4.40 cm. Venous The inferior vena cava is normal in size and collapses greater than 50% with inspiration. Pericardium/Pleural There is no evidence of pericardial effusion. Prior Study Comparison No prior study available for comparison. Measurements 2D Linear Measurements IVSd: 1.37 0.6-0.9/0.6-1.0 cm LVIDd: 4.52 3.9-5.3/4.2-5.9 cm LVIDd Index: 1.95 2.4-3.2/2.2-3.1 cm/m2 LVIDs: 2.92 2.0-3.6 cm LVPWd: 1.39 0.7-1.1 cm LA Diam: 5.40 2.7-3.8/3.0-4.0 cm LAIDs Index: 2.33 1.5-2.3 cm/m2 LV Mass: 305.22 67-162/88-224 g LV Mass Index: 131.56 43-95/49-115 g/m2 LVOT Diam: 2.10 3.0+(-)1.3 cm 2D Systolic Function EF 4C: 65.00 >55% EF 2C: 56.30 >55% EF BiP: 60.70 >55% Mitral Valve MV VTI: 0.38 MV Pk Jeremias: 1.02 MV Mn Jeremias: 0.60 MV Pk Grad: 4.00 MV Mn Grad: 2.00 MV Pk E: 0.66 MV PK A: 1.05 MV Decel Time: 246.00 E/A: 0.60 E'Lateral: 6.09 E'Medial: 7.07 E/E' Med: 9.40 E/E' Lat: 10.90 PHT: 72.00 MVA PHT: 3.06 MVA Continuity: 2.25 Decel Rains: 2.70 Aortic Valve AoV Pk Jeremias: 2.38 AoV Mn Jeremias: 1.64 AoV VTI: 0.55 AoV Pk Grad: 23.00 Aov Mn Grad: 13.00 ROBERT Cont.VTI: 1.56 LVOT LVOT Pk Jeremias: 0.98 LVOT Mn Jeremias: 0.66 LVOT VTI: 0.25 LVOT Pk Grad: 4.00 LVOT Mn Grad: 2.00 LVOT Diam: 2.10 LVOT Area: 3.46 Diastolic Function MV Pk E: 0.66 MV Pk A: 1.05 E/A: 0.60 E'Medial: 7.07 E/E' Med: 9.40 E' Laterial: 6.09 E/E' Lat: 10.90 Right Ventricle TAPSE (mm): 25.70 TVS' Jeremias: 17.80 Tricuspid Valve TR Pk Jeremias: 2.80 TR Pk Grad: 31.00 Great Vessels Aorta Sinus of Valsalva: 3.70 2.0-3.5 cm Ao Asc: 4.40 2.1-3.4 cm Pulmonary Valve PV Pk Jeremias: 1.16 Peak PV Grad: 5.00 Updated in Other Vendor System with Status of Final Oscar Read MD electronically signed on 08/05/2023 3:23:01 PM with status of Final
== END ==
LOC: HO.CARD 13:39
PROVIDERS: PCP Internal Medicine; Visit Provider Nurse Practitioner Primary Care
DX: I35.0 Nonrheumatic aortic (valve) stenosis (principal); R60.0 Localized edema
CPT/HCPCS: 93306

== ENCOUNTER → 2023-08-04 13:44 | Outpatient (BNV) | payer OTHER, SELFPAY | PROVIDERS: PCP Internal Medicine; Visit Provider Internal Medicine Cardiovascular Disease | DX: I35.0 Nonrheumatic aortic (valve) stenosis (principal) | CPT/HCPCS: 93306 ==

== ENCOUNTER 2023-08-05 09:32 | Outpatient (AMB) | payer OTHER, SELFPAY ==
[2023-08-05 09:51] VITALS: BP 140/70; PULSE 58; BMI 39.9
--- NOTE | 2023-08-05 09:51 | A.OFFVIS_ITS ---
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 He does speak Thai and hence his nephew is translating. Appropriate form signed. Apart from aortic stenosis, no other known/documented cardiac history. He denies any symptoms like angina or shortness of breath on exertion. It seems that he has been getting some leg swelling off and on. There is also mention of cirrhosis of the liver but patient does not know about that. [facility] Medical History (Updated 08/05/23 @ 10:16 by Venkat Gloria MD) Vitamin D deficiency Pure hypercholesterolemia Arthritis of both knees PAZ (obstructive sleep apnea) Impaired glucose tolerance Nonrheumatic aortic (valve) stenosis Abnormal CT scan, gastrointestinal tract HTN (hypertension) Surgical History (Updated 08/05/23 @ 09:53 by Tara Hart) No pertinent past surgical history Family History (Updated 08/05/23 @ 09:53 by Tara Hart) Mother No problems noted. Father No problems noted. Social History Alcohol intake: current Alcohol intake frequency: 3 or more drinks per day Alcohol type: beer Review of Systems Const Denies chills, Denies daytime sleepiness, Denies fatigue, Denies fever(s), Denies frequent falls, Denies night sweats, Denies snoring, Denies weakness, Denies weight gain and Denies weight loss Eyes Denies loss of vision ENT Denies dizziness and Denies hearing loss Card Denies chest pain, Denies chest pain with activity, Denies syncope, Denies rapid heart rate, Denies edema, Denies claudication, Denies leg edema, Denies lightheadedness, Denies palpitations, Denies dyspnea, Denies dyspnea on exertion and Denies orthopnea Resp Denies cough, Denies excessive phlegm production, Denies dyspnea, Denies dyspnea on exertion, Denies snoring and Denies wheezing GI Denies abdominal pain, Denies hematochezia, Denies change in bowel habits, Denies change in stool character, Denies heartburn, Denies nausea and Denies vomiting Denies hematuria, Denies dysuria and Denies urinary frequency Musc Denies arthralgias, Denies muscle weakness, Denies numbness and Denies tingling Skin/Breast Denies nail changes and Denies rash Neuro Denies Abnormal speech present, Denies dizziness, Denies syncope, Denies frequent falls, Denies loss of vision, Denies memory loss, Denies numbness, Denies tingling and Denies weakness Psych Denies depression and Denies memory loss Endo Denies fatigue and Denies palpitations Aller/Immun Denies wheezing Physical Exam Vital Signs: Last Vital Signs Pulse 58 08/05/23 09:51 BP 140/70 H 08/05/23 09:51 BMI result Body Mass Index 39.9 Const General: comfortable and no acute distress Orientation/consciousness: patient oriented x3 HEENT Other: Unremarkable Head: Yes normal to inspection Neck Neck: Yes normal visual inspection Chest Chest palpation & inspection: normal inspection of the chest Resp Auscultation: clear to auscultation bilaterally Cardio Palpation: normal PMI Heart sounds: S1 normal heart sound present, S2 normal heart sound present, no gallops, Murmur heart sound present systolic I/ and at the right sternal border and no rubs GI Palpation (GI): Soft to palpation Back/Spine/Pelvis Other: unremarkable Skin General skin exam: no rashes or lesions noted Neuro General: patient oriented x3 Speech: No Abnormal speech present Extrem Other: Trace edema General: Yes normal to inspection Psych Mental Status: mental status grossly normal Office Procedures EKG Details: EKG with sinus bradycardia, 58/Min; no significant ST-T changes and otherwise unremarkable[place] [id number], Complete Assessment & Plan Assessment & Plan (1) Nonrheumatic aortic (valve) stenosis: Code(s): I35.0 - Nonrheumatic aortic (valve) stenosis Plan Echocardiogram not yet reported. Images reviewed. It seems that there is some basal inferior hypokinesis. Aortic valve is calcified and there is probably [id number] aortic stenosis. Findings discussed with patient/nephew. At this time, the aortic stenosis not hemodynamically significant. Will need to be followed on echocardiograms. With regard to the question of wall motion abnormality, can await final report. Possibly stress testing in the future. Coding Level of Care Code New Pt Level 4 (33427) Diagnoses Nonrheumatic aortic (valve) stenosis I35.0 CPT Codes EKG - CPT: 72772-[id number], Complete ([id number])
== END 2023-08-05 10:13 | disposition home or self-care (01) ==
PROVIDERS: PCP Internal Medicine; Visit Provider Internal Medicine
DX: I35.0 Nonrheumatic aortic (valve) stenosis (principal); R00.1 Bradycardia, unspecified
CPT/HCPCS: 93010; 99204

== ENCOUNTER → 2023-08-05 09:32 | Outpatient (BNVA) | payer OTHER, SELFPAY | PROVIDERS: PCP Internal Medicine; Visit Provider Internal Medicine | DX: I35.0 Nonrheumatic aortic (valve) stenosis (principal) | CPT/HCPCS: 93005; 99202 ==

== ENCOUNTER 2023-08-26 08:35 | Outpatient (REF) | payer OTHER, SELFPAY ==
--- NOTE | ~2023-08-26 | MM_ITS ---
EXAMINATION: BONE DENSITOMETRY CLINICAL INDICATION: History of compression fracture. COMPARISON: This is the patient's baseline examination. TECHNIQUE: Using a [employer] DXA System (software version: 13.1) manufactured by [employer], dual-energy x-ray absorptiometry was performed of the lumbar spine and left hip. The images are of good technical quality. Summary results are attached. FINDINGS: AP SPINE L1-L4: BMD 1.151 g/cm2, Z-score -0.7, T-score -0.6, normal. LEFT FEMUR, NECK: BMD 0.831 g/cm2, Z-score -1.0, T-score -1.8, osteopenia. LEFT FEMUR, TOTAL: BMD 0.926 g/cm2, Z-score -0.8, T-score -1.2, osteopenia. IDENTIFIED RISK FACTORS: None listed. HISTORY OF FRACTURE: None listed. MEDICATIONS: Multivitamin. MM/XR DEXA axial skeleton IMPRESSION: 1. DIAGNOSIS: Osteopenia based on the lowest T-score value of -1.8 in the femoral neck applying World Health Organization criteria. 2. 10-YEAR FRACTURE RISK PREDICTION, FRAX: Major osteoporotic fracture (clinical spine, forearm, hip or shoulder) 4.0%. Hip fracture 1.1%. 3. Treatment Recommendations: NOF guidelines recommend consideration for treatment in postmenopausal women and men age 50 and older presenting with the following: -A hip or vertebral (clinical or morphometric) fracture. -T-score less than or equal to -2.5 at the femoral neck or spine after appropriate evaluation to exclude secondary causes. -Low bone mass at the hip or spine and a 10-year fracture probability by FRAX of greater than or equal to 3% for hip fracture or greater than or equal to 20% for major osteoporotic fracture based on the [place] adapted WHO algorithm. 4. Other Recommendations: All treatment decisions require clinical judgment and consideration of individual patient factors, including patient preferences, comorbidities, previous drug use, risk factors not captured in the FRAX model (e.g. frailty, falls, vitamin D deficiency, increased bone turnover, interval significant decline in bone density) and possible under or overestimation of fracture risk by FRAX. Additional medical evaluation for secondary cause of low bone mineral density may be appropriate. FUTURE SCAN RECOMMENDATION: People with diagnosed cases of osteoporosis or at high risk for fracture should have regular bone mineral density tests. For patients eligible for Medicare, routine testing is allowed once every 2 years. The testing frequency can be increased to one year for patients who have rapidly progressing disease, those who are receiving or discontinuing medical therapy to restore bone mass, or have additional risk factors.
== END 2023-08-26 08:36 | disposition home or self-care (01) ==
LOC: HO.MAMMO 08:35
PROVIDERS: PCP Nurse Practitioner Primary Care; Visit Provider Nurse Practitioner Primary Care
DX: Z13.820 Encounter for screening for osteoporosis (principal); Z87.81 Personal history of (healed) traumatic fracture; M85.852 Other specified disorders of bone density and structure, left thigh
CPT/HCPCS: 77080

== ENCOUNTER 2023-12-07 08:57 | Outpatient (AMB) | payer OTHER, SELFPAY ==
--- NOTE | 2023-12-07 09:19 | A.OFFVIS_ITS ---
Vital Signs 12/07/23 09:20 Height 5 ft 8 in Weight 269 lb 6.478 oz BMI 41.0 BP 140/92 H Blood Pressure Location Lt brachial Position Sitting Pulse 70 Pulse Source Pulse Oximeter Intake Visit Reasons: f/up r/s from 147830 V Belt Inspector Required: No Rotary Shear Cutter: Rotary Shear Cutter Present Allergies No Known Allergies Allergy (Verified 12/07/23 09:23) Medication List - Last Reconciled 12/07/23 by Kira Ontiveros NP-C benzonatate 200 mg PO TID PRN hydrochlorothiazide 25 mg PO DAILY lisinopril 10 mg PO DAILY nifedipine ER 30 mg PO DAILY rosuvastatin 10 mg PO BEDTIME spironolactone 25 mg PO QAM tramadol 50 mg PO BID PRN HPI HPI f/up r/s from [id number]: Details: Cristian is a 73-year-old male past medical history of hypertension, heart murmur, aortic stenosis who presents for follow-up after recent echocardiogram. Today he reports he has been feeling well with no concerning symptoms. Denies having chest discomfort at rest or with activity. He denies shortness of breath, PND, orthopnea or edema. No lightheadedness, presyncope, syncope, falls. Takes meds as directed. CLAY PRODUCTS MACHINE OPERATOR is present and assisting with Prydeinig translation at their request. [facility] Medical History (Updated 12/07/23 @ 11:31 by Kira Ontiveros NP-C) Vitamin D deficiency Pure hypercholesterolemia Arthritis of both knees PAZ (obstructive sleep apnea) Impaired glucose tolerance Nonrheumatic aortic (valve) stenosis Abnormal CT scan, gastrointestinal tract HTN (hypertension) Surgical History No pertinent past surgical history Family History Mother No problems noted. Father No problems noted. Social History Alcohol intake: current Alcohol intake frequency: 3 or more drinks per day Alcohol type: beer Review of Systems Const All systems reviewed & are unremarkable except as noted in HPI and below ENT Denies dizziness Card Denies chest pain, Denies chest pain at rest, Denies chest pain with activity, Denies rapid heart rate, Denies pedal edema, Denies edema, Denies leg edema, Denies lightheadedness, Denies palpitations, Denies dyspnea, Denies dyspnea on exertion and Denies orthopnea Resp Denies cough, Denies dyspnea and Denies dyspnea on exertion GI Denies hematochezia and Denies change in stool character Musc Denies abnormal gait, Denies limited range of motion, Denies muscle cramps, Denies muscle weakness, Denies numbness, Denies radiating pain into limb, Denies stiffness and Denies tingling Neuro Denies abnormal gait, Denies dizziness, Denies numbness and Denies tingling Endo Denies palpitations Physical Exam Vital Signs: Last Vital Signs Pulse 70 12/07/23 09:20 BP 140/92 H 12/07/23 09:20 BMI result Body Mass Index 41.0 Const General: cooperative, healthy appearing, comfortable and no acute distress Orientation/consciousness: patient oriented x3 Neck Neck: Yes normal visual inspection and Yes no JVD Resp Effort & Inspection: normal respiratory effort Auscultation: clear to auscultation bilaterally, no crackles, no rales, no rhonchi and no wheezes Cardio Jugular venous distension: no JVD Rate: regular rate Rhythm: regular rhythm Heart sounds: S1 normal heart sound present, S2 normal heart sound present, Murmur heart sound present (2/6 systolic ) and no rubs Neuro General: patient oriented x3 Extrem General: Yes normal to inspection and No no pedal edema Psych Appearance: grossly normal Mental Status: mental status grossly normal Speech and movement: Normal speech and movement present Assessment & Plan Assessment & Plan (1) Nonrheumatic aortic (valve) stenosis: Code(s): I35.0 - Nonrheumatic aortic (valve) stenosis Category: Medical Plan: History of heart murmur. He had an echocardiogram done on 2023 showing EF 60-65%, mild LVH, mild aortic stenosis with mean gradient 13 mmHg, aortic valve area 1.56 centimeter sq, ascending aorta 4.4 cm. Echo findings reviewed with him in detail. Diagnosis of aortic stenosis and progression of this problem reviewed. He is currently asymptomatic. Will arrange for cardiology follow-up in 1 year, sooner if needed. Echocardiogram prior to that visit. (2) HTN (hypertension): Code(s): I10 - Essential (primary) hypertension Category: Medical Plan: History of hypertension. Blood pressure initially elevated this visit at 140/92. Blood pressure recheck done by me after sitting for 15 minute shows 124/80. Will have him continue on current med management including his hydrochlorothiazide, lisinopril, nifedipine and spironolactone. Plan Time spent on chart review, documentation, interview and assessment Orders: Orders CA echo transthoracic complete 11 Months I35.0 - Nonrheumatic aortic (valve) stenosis Coding Level of Care Code Est Pt Level 3 (43214) Diagnoses Nonrheumatic aortic (valve) stenosis I35.0 HTN (hypertension) I10 Time Spent (min) 24
[2023-12-07 09:20] VITALS: BP 140/92; PULSE 70; BMI 41.0
== END 2023-12-07 09:41 | disposition home or self-care (01) ==
PROVIDERS: PCP Nurse Practitioner Primary Care; Visit Provider Nurse Practitioner Family
DX: I35.0 Nonrheumatic aortic (valve) stenosis (principal); I10 Essential (primary) hypertension
CPT/HCPCS: 99213

== ENCOUNTER → 2023-12-07 08:57 | Outpatient (BNVA) | payer OTHER, SELFPAY | PROVIDERS: PCP Nurse Practitioner Primary Care; Visit Provider Nurse Practitioner Family | DX: I35.0 Nonrheumatic aortic (valve) stenosis (principal); I10 Essential (primary) hypertension | CPT/HCPCS: 99212 ==

== ENCOUNTER 2024-02-19 09:56 | Outpatient (REF) | payer OTHER, SELFPAY ==
[2024-02-19 12:06] LABS: Anion Gap 16 (12-20); Blood Urea Nitrogen 24 mg/dL (9-16); Calcium 9.6 mg/dL (8.4-10.2); Carbon Dioxide 19 mmol/L (22-29); Chloride 106 mmol/L (96-108); Estimated Glomerular Filt Rate 31; Glucose Random 106 mg/dL (60-115); Potassium 3.7 mmol/L (3.3-5.1); Sodium 137 mmol/L (135-145)
[2024-02-19 12:07] LABS: Alanine Aminotransferase 46 U/L (0-40); Albumin Level 3.9 g/dL (3.5-5.0); Alkaline Phosphatase 62 U/L (39-117); Aspartate Amino Transferase 81 U/L (5-37); Bilirubin Direct 0.5 mg/dL (0.0-0.5); Bilirubin Total 1.1 mg/dL (0.0-1.0); Total Protein 7.3 g/dL (6.5-8.0)
[2024-02-19 12:18] LABS: Prostate Specific Antigen 4.44 ng/mL (<0.05-4.0)
== END 2024-02-19 09:57 | disposition home or self-care (01) ==
LOC: HO.HHCL 09:56
PROVIDERS: Visit Provider Nurse Practitioner Primary Care
DX: I10 Essential (primary) hypertension (principal); R60.0 Localized edema; N40.0 Benign prostatic hyperplasia without lower urinary tract symptoms; Z12.5 Encounter for screening for malignant neoplasm of prostate
CPT/HCPCS: 36415; 80048; 80076; 84153

== ENCOUNTER 2024-04-15 10:37 | Outpatient (REF) | payer OTHER, SELFPAY ==
[2024-04-15 12:22] LABS: Prostate Specific Antigen 4.53 ng/mL (<0.05-4.0)
[2024-04-15 12:23] LABS: Anion Gap 13 (12-20); Blood Urea Nitrogen 14 mg/dL (9-16); Calcium 9.5 mg/dL (8.4-10.2); Carbon Dioxide 21 mmol/L (22-29); Chloride 105 mmol/L (96-108); Estimated Glomerular Filt Rate > 60; Glucose Random 100 mg/dL (60-115); Potassium 4.3 mmol/L (3.3-5.1); Sodium 135 mmol/L (135-145)
== END 2024-04-15 10:38 | disposition home or self-care (01) ==
LOC: HO.HHCL 10:37
PROVIDERS: Visit Provider Nurse Practitioner Primary Care
DX: R79.89 Other specified abnormal findings of blood chemistry (principal); R97.20 Elevated prostate specific antigen [PSA]; Z12.5 Encounter for screening for malignant neoplasm of prostate
CPT/HCPCS: 36415; 80048; 84153

== ENCOUNTER 2024-04-20 08:12 | Outpatient (REF) | payer OTHER, SELFPAY ==
--- NOTE | ~2024-04-20 | CT_ITS ---
EXAMINATION: CT ABDOMEN AND PELVIS WITHOUT CONTRAST CLINICAL INFORMATION: Follow up abnormal CT COMPARISON: 12/02/2021 TECHNIQUE: Multidetector volumetric imaging was performed from the superior aspect of the liver through the pubic symphysis. Sagittal and coronal reformatted images were obtained on the technologist's workstation. This CT examination was performed using dose optimization techniques as appropriate, variously including the following: *Automated exposure control *Adjustment of mA and/or kV according to patient size (this includes techniques or standardized protocols for targeted exams where dose is matched to indication/reason for exam; i.e. extremities or head) *Use of iterative reconstruction technique DLP: 824 mGy-cm FINDINGS: LUNG BASES: The visualized lung bases are unremarkable. Severe coronary calcifications LIVER, GALLBLADDER, AND BILIARY TREE: Liver is small in size with nodular contour consistent with underlying cirrhosis. Gallbladder is decompressed. No biliary ductal dilatation is seen. PANCREAS: Unremarkable. SPLEEN: Unremarkable. ADRENAL GLANDS: Unremarkable. KIDNEYS AND URETERS: The kidneys are normal in size, shape, and attenuation. No hydronephrosis, hydroureter, or calculi seen. No perinephric stranding. Stable simple fluid density cyst in the left kidney measuring 2.2 cm. No follow-up indicated. BLADDER: Decompressed GASTROINTESTINAL TRACT: The small and large bowel are unremarkable. The appendix is unremarkable. ABDOMINAL WALL: Diastases of the anterior abdominal wall LYMPH NODES: Normal. VASCULAR: Focal area of ectasia in the infrarenal abdominal aorta with AP diameter of 2.8 cm, stable. Diffuse atherosclerotic wall calcifications seen in the abdominal aorta and iliac arteries. PELVIC VISCERA: Prostate gland is moderately enlarged OSSEOUS STRUCTURES: Compression fractures seen of T12 and L1. The compression fracture at T12 is new and at L1 has increased in severity compared to 202. These are age indeterminate CT/CT abdomen pelvis wo IV con IMPRESSION: 1. No acute process. 2. Cirrhotic liver. 3. 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 Based on published guidelines in J Am Shani Radiol 2013; 10(10):789-794 and J Vasc Surg. 2018; 67:2-77, the recommendation for an abdominal aorta with diameter 2.6-2.9 cm is follow-up every 5 years if the aorta that meets the criteria for AAA (>1.5 x proximal normal segment; no f/u if < 1.5 x proximal normal segment; no f/u for aorta < 2.6 cm). 4. Compression fractures of T12 and L1 which are age indeterminate. Electronically signed by: Urbano Lujan MD 06/21/2024 02:13 PM CHAD LOPEZ
[2024-04-20] MEDS: Barium Sulfate Oral (Mocha) 450 ML ORAL.SUSP 900 ML PO (11:19)
== END 2024-04-20 08:13 | disposition home or self-care (01) ==
LOC: HO.CT 08:12
PROVIDERS: PCP Nurse Practitioner Primary Care; Visit Provider Nurse Practitioner Primary Care
DX: R93.5 Abnormal findings on diagnostic imaging of other abdominal regions, including retroperitoneum (principal)
CPT/HCPCS: 74176

== ENCOUNTER → 2024-11-07 09:57 | Outpatient (REF) | payer OTHER, SELFPAY ==
--- NOTE | 2024-11-07 10:01 | CA_ITS ---
Transthoracic Echocardiogram Patient (Last, First, Middle): Cristian Gann, Gender: Male Date of : 1950 Age: 74 Procedure Date: 11/07/2024 Procedure Type: Transthoracic Echocardiogram Location: OP Height: 172. cm Weight: 113.4 kg BSA: 2.24 m2 Heart Rate: 70 bpm BP: 150 / 90 mmHg Traffic Operations Manager: FILIBERTO Reyes MD: Kira Ontiveros SERVICE WORKER-Emmie Concrete Batcher: Oscar Read MD Symptoms: I35.0 - Nonrheumatic aortic (valve) stenosis Study Quality: Fair ECG Rhythm: Sinus Conclusions: - 1. Moderately dilated ascending aorta at 4.6 cm 2. Hyperdynamic LVEF of greater than 70% 3. Mildly dilated left atrium 4. Mild aortic stenosis 5. Normal RV systolic pressure 6. No gross pericardial effusion Findings Left Ventricle Normal left ventricular cavity size. There is normal left ventricular wall thickness. The left ventricular systolic function is hyperdynamic. The visually estimated ejection fraction is >70%. Spectral Doppler is indicative of a pseudonormal filling pattern. Right Ventricle Normal right ventricular cavity size and systolic function. Atria The left atrium is mildly dilated. Interatrial shunt cannot be excluded. The right atrium was not well visualized. Aortic Valve There is moderate calcification of the aortic valve. There is mild thickening of the aortic valve. There is mild aortic valve stenosis. The peak aortic gradient is 32 mmHg.The mean gradient is 18 mmHg. The aortic valve area is 1.51 cm2. There is mild aortic valve regurgitation. Mitral Valve There is mild anterior mitral leaflet thickening. There is mild mitral annular calcification. There is trace mitral valve regurgitation. There is no mitral valve stenosis. Pulmonic Valve The pulmonic valve was not well visualized. Tricuspid Valve Likely normal tricuspid valve structure and function. There is mild tricuspid valve regurgitation. The right ventricular systolic pressure is normal. The right ventricular systolic pressure is 27 mmHg. Normal right atrial pressure. There is no evidence of pulmonary hypertension. Great Vessels The pulmonary artery was not well visualized. There is moderate dilatation of the ascending aorta measuring 4.60 cm. Venous The inferior vena cava is normal in size and collapses greater than 50% with inspiration. Pericardium/Pleural There is no evidence of pericardial effusion. Prior Study Comparison Changes noted compared to prior study dated: 08/04/2023. ascending aorta is moderately enlarged at 4.6 cm Measurements 2D Linear Measurements IVSd: 1.04 0.6-0.9/0.6-1.0 cm LVIDd: 5.11 3.9-5.3/4.2-5.9 cm LVIDd Index: 2.28 2.4-3.2/2.2-3.1 cm/m2 LVIDs: 2.49 2.0-3.6 cm LVPWd: 1.16 0.7-1.1 cm Ao Root: 3.90 2.1-3.5 cm LA Diam: 4.70 2.7-3.8/3.0-4.0 cm LAIDs Index: 2.10 1.5-2.3 cm/m2 LV Mass: 267.47 67-162/88-224 g LV Mass Index: 119.41 43-95/49-115 g/m2 LVOT Diam: 2.10 3.0+(-)1.3 cm 2D Systolic Function EF 4C: 74.40 >55% EF 2C: 71.60 >55% EF BiP: 73.40 >55% Mitral Valve MV VTI: 0.41 MV Pk Jeremias: 1.28 MV Mn Jeremias: 0.75 MV Pk Grad: 7.00 MV Mn Grad: 3.00 MV Pk E: 1.34 MV PK A: 1.03 MV Decel Time: 255.00 E/A: 1.30 E'Lateral: 9.36 E'Medial: 6.64 E/E' Med: 20.20 E/E' Lat: 14.30 PHT: 75.00 MVA PHT: 2.93 MVA Continuity: 2.32 Decel [place]: 5.26 Aortic Valve AoV Pk Jeremias: 2.84 AoV Mn Jeremias: 1.99 AoV VTI: 0.62 AoV Pk Grad: 32.00 Aov Mn Grad: 18.00 ROBERT Cont.VTI: 1.51 AI Pk Jeremias: 3.43 AI [place]: 1.34 LVOT LVOT Pk Jeremias: 1.17 LVOT Mn Jeremias: 0.85 LVOT VTI: 0.27 LVOT Pk Grad: 5.00 LVOT Mn Grad: 3.00 LVOT Diam: 2.10 LVOT Area: 3.46 Diastolic Function MV Pk E: 1.34 MV Pk A: 1.03 E/A: 1.30 E'Medial: 6.64 E/E' Med: 20.20 E' Laterial: 9.36 E/E' Lat: 14.30 Right Ventricle TAPSE (mm): 24.00 TVS' Jeremias: 20.80 Tricuspid Valve TR Pk Jeremias: 2.47 TR Pk Grad: 24.00 RA Press: 3.00 RVSP: 27.00 Great Vessels Aorta Ao Root-2D: 3.90 2.0-3.7 cm Sinus of Valsalva: 3.90 2.0-3.5 cm Ao Asc: 4.60 2.1-3.4 cm Ao Arch: 2.50 Pulmonary Valve PV Pk Jeremias: 1.17 Peak PV Grad: 5.00 Updated in Other Vendor System with Status of Final Oscar Read MD electronically signed on 11/07/2024 12:28:32 PM with status of Final
--- OUTSIDE RECORDS SUMMARY | 2024-11-07 11:10 | XMS_ITS | Clinical Summary ---
Author Organization [employer] Address [address] [facility] 7t [place] [address] Care Team Providers Care Staff Internist Office Based Only Name Role Phone Amanda Sonal ZEE Primary Care Provider [phone] Allergies No known active allergies Medications Blood Pressure Monitoring (Omron 3 Series BP Monitor) device USE TO CHECK BLOOD PRESSURE DAILY DIRECTED 03/05/20 22 Active ketorolac (Acular) 0.5 % ophthalmic solution INSTILL 1 DROP IN THE AFFECTED EYE THREE TIMES DAILY. START 2 DAYS BEFORE DE LA SURGERY 10/29/19 23 Active Calcium Carb-Cholecalcif patti 600-10 MG-MCG tabletIndication s:Osteopenia of neck of femur, unspecified laterality Take 1 tablet by mouth 2 times daily. 180 tablet 3 02/19/20 24 Active acetaminophen (Tylenol Extra Strength) 500 MG tabletIndication s:Chronic back pain, unspecified back location, unspecified back pain laterality 1-2 tabs every 8 hours as needed for pain 100 tablet 02/19/20 24 Active NIFEdipine XL (Procardia XL) 30 MG 24 hr tabletIndication s:Hypertension, essential TAKE 1 TABLET BY MOUTH EVERY EVENING 90 tablet 1 05/23/20 24 Active rosuvastatin (Crestor) 40 MG tablet TAKE 1 TABLET BY MOUTH EVERY MORNING 90 tablet 1 06/14/20 24 Active metoprolol succinate XL (Toprol-XL) 50 MG 24 hr tabletIndication s:Essential hypertension TAKE 1 TABLET BY MOUTH EVERY MORNING 90 tablet 3 07/14/20 24 Active lisinopril 40 MG tabletIndication s:Essential hypertension TAKE 1 TABLET BY MOUTH EVERY MORNING 90 tablet 3 07/14/20 24 Active Ferrous Sulfate (iron) 325 (65 Fe) MG tabletIndication s:Anemia, unspecified type TAKE 1 TABLET BY MOUTH EVERY MORNING 90 tablet 1 10/14/19 25 Active FeroSul 325 (65 Fe) MG tabletIndication s:Anemia, unspecified type TAKE 1 TABLET BY MOUTH EVERY MORNING 90 tablet 1 04/04/20 24 025 Discontinued Active Problems Problem Noted Date Diagnosed Date Closed fracture of first lumbar vertebra 023 Overview (03/06/2023): On CT 11/2021 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 No addit s/s of fluid overload. Elevate, wear compression socks. Low salt diet. +venous stasis derm. Aortic valve stenosis 09/30/[address] of the abdomen 12/02/2021 Overview (03/06/2023): Images from the original note were not included. Did see Dr. Conklin in f/u 02/[address] was ordered to eval appendix Aortic root dilatation 05/10/2015 Essential hypertension 05/10/2015 Overview (02/19/2024): BP near goal </= 130/80 Continue to encourage low salt diet, regular exercise, home BP monitoring, compliance with medications. Call clinic if BP is frequently >150/90 Go to ED/call 911 if > 170/100 and having sx such as BOND, visual changes, chest pain, SOB Last renal function: Lab Results Component Value Date GLUCOSE 102 02/17/2023 NA 138 02/17/2023 K 4.3 02/17/2023 CO2 26 02/17/2023 CL 106 02/17/2023 BUN 12 02/17/2023 CREATININE 0.77 02/17/2023 EGFR >60 02/17/2023 Lisinopril 40mg daily Metoprolol succ XL 50mg daily Nifedipine XL 30mg 24hr tab daily No MATT on renal US 2012 He had an echocardiogram done on 12 13 2023 showing EF 60-65%, mild LVH, mild aortic stenosis with mean gradient 13 mmHg, aortic valve area 1.56 centimeter sq, ascending aorta 4.4 cm. Echo findings reviewed with him in detail. Diagnosis of aortic stenosis and progression of this problem reviewed. He is currently asymptomatic. Impaired glucose tolerance 05/10/2015 Obstructive sleep apnea syndrome 05/10/2015 Overview (02/19/2024): Pt denies need for or use of CPAP Primary osteoarthritis of both knees 05/10/2015 Pure hypercholesterolemia 05/10/2015 Vitamin D deficiency 05/10/2015 Encounters Date Type Department Care Team Description 10/13/2024 Refill [facility] [address] [place] [address] Sonal Patel ANP Anemia, unspecified type from Last 3 Months Immunizations Name Administration Dates Next Due Influenza High-dose Quadriva lent Preservative Free 05/03/2021 Influenza, IIV3, injectable 04/02/2011, 0,04/11/2009 Influenza, Split (incl. macarena fied surface antigen) 06/01/2013,04/14/2012 Pfizer Covid-19 Vaccine 12+ 03/23/2021, 1 Pfizer Covid-19 Vaccine 12+ Bivalent 03/06/2023 Pneumococcal Conjugate PCV 13 02/13/2017 Pneumococcal Polysaccharide PPSV23 05/03/2021 TD (adult), 2 Lf tetanus tox oid, preservative free, adsorbed 02/11/2008 Tdap 02/13/2017 Social History Tobacco Use Types Packs/Day Years Used Date Smoking Tobacco: Never Passive Smoke Exposure: Never Smokeless Tobacco: Never Alcohol Use Standard Drinks/Week Comments Yes 0 (1 standard drink = 0.6 oz pur e alcohol) Depression Answer Date Recorded Patient Health Questionnaire-9 Score 0 02/19/2024 Patient Health Questionnaire-9 Score 0 02/19/2024 Last PHQ-9: Questionnaire Data Not on file 0 02/19/2024 Housing Stability Answer Date Recorded What is your housing situation today? I have kristen leblanc 02/19/[address] you li ve. Do you have problems with any of the following? None of the above 02/19/2024 Food Insecurity Answer Date Recorded Within the past 12 months, y ou worried that your food would run out before you got money to buy more: Never True 02/19/2024 Within the past 12 months,th e food you bought just didn't last and you didn't have enough money to get more: Never True Transportation Answer Date Recorded In the past 12 months, has l ack of transportation kept you from medical appts, meetings, work or from getting things needed for daily living? No 02/19/2024 Utilities Answer Date Recorded In the past 12 months, has t he electric, gas, oil or water company threatened to shut off services in your home? No 02/19/2024 Depression Answer Date Recorded Patient Health Questionnaire-2 Score 0 02/19/2024 Internet Access Answer Date Recorded Internet Access Q1 Yes 03/28/2024 Internet Access Q2 Not on file 03/28/2024 Sex and Gender Information Value Date Recorded Sex Assigned at Male 05/26/2022 10:17 AM EDT Legal Sex Male 10:17 AM EDT Gender Identity Male 05/26/2022 10:17 AM EDT Sexual Orientation Straight 05/26/2022 10 :17 AM EDT Last Filed Vital Signs Vital Sign Reading Time Taken Comments Blood Pressure 138/75 02/19/2024 10:18 AM EDT Pulse 59 02/19/2024 10:18 AM EDT Temperature 36.2 ??C (97.1 ??F) 02/19/2024 10:18 AM E DT Respiratory Rate 20 02/19/2024 10:18 AM EDT Oxygen Saturation 96% 02/19/2024 10:18 AM EDT Inhaled Oxygen Concentration - - Weight 116 kg (255 lb 9.6 oz) 02/19/2024 10:18 A M EDT Height 172.7 cm (5' 8 ) 11/05/2023 9:15 AM EDT Body Mass Index 38.86 11/05/2023 9:15 AM EDT Plan of Treatment Health Maintenance Due Date Last Done Comments CT Colonography 1950 Colonoscopy 1950 Colorectal Cancer Screening 1950 FIT DNA/Cologuard 1950 FIT 1950 FOBT 1950 Sigmoidoscopy 1950 Alcohol/Substance Use Screening 1962 Hepatitis C Screening 01/17/1968 Zoster Vaccines (1 of 2) 01/17/2000 RSV Patients and Patients Aged 60 years or older (1 - Risk 60-74 years 1-dose series) 2010 COVID-19 Vaccine ( season) 2024 03/06/2023, 03/23/2021, 03/02/2021 Influenza Vaccine (#1) 2024 , 06/01/2013, 04/14/2012, Additional history exists Depression Screening 02/18/2025 02/19/2024, 02/19/20 24 SDOH Screening 02/18/2025 02/19/2024 Tobacco Screening 02/18/2025 02/19/2024 DTaP/Tdap/Td Vaccines (2 - Td or Tdap) 02/13/2027 02/13/2017, 02/11/2008 Lipid Panel 02/18/2028 02/17/2023, 03/27, 06/18/2021 Pneumococcal Vaccine: 50+ Years Completed 05/03/2021, 02/13/2017 HIB Vaccines Aged Out No longer eligi ble based on patient's age to complete this topic HPV Vaccines Aged Out No longer eligi ble based on patient's age to complete this topic Hepatitis A Vaccines Aged Out No long er eligible based on patient's age to complete this topic Hepatitis B Vaccines Aged Out No long er eligible based on patient's age to complete this topic IPV Vaccines Aged Out No longer eligi ble based on patient's age to complete this topic Meningococcal Vaccine Aged Out No avery kris eligible based on patient's age to complete this topic RSV under 20 months Aged Out No longe r eligible based on patient's age to complete this topic Rotavirus Vaccines Aged Out No longer eligible based on patient's age to complete this topic Goals Goal Patient Goal Type Associated Problems Recent Progress Patient-Stated? Author Blood Pressure < 150/90 Blood Pressure 138/75( 024 10:18 AM EDT) No Thomas Rodarte Procedures Procedure Name Priority Date/Time Associated Diagnosis Comments LIPID PANEL, STANDARD Routine 02/17/2023 9:32 AM EDT Primary hypertension Iron deficiency anemia, unspecified iron deficiency anemia type Pure hypercholesterolemia from Last 3 Months or Most Recently Relevant to Health Maintenance Results * Lipid Panel, Standard (02/17/2023 9:32 AM EDT) Triglycerides 104 mg/dL [facility] Comment:Desirable Triglyceri de: less than 150 mg/dLBorderline High Triglyceride 150-199 mg/dLHigh Triglyceride: 200-499 mg/dLVery High Triglyceride: greater than or equal to 5OO mg/dL Cholesterol 166 mg/dL [facility] Comment:Desirable Cholestero l: less than 200 mg/dLBorderline High Cholesterol: 200-239 mg/dLHigh Cholesterol: greater than 239 mg/dL LDL Cholesterol Calculated 81 mg/dl [facility] Comment:Desirable LDL: less than 100 mg/dLNear Optimal/Above Optimal LDL: 110- 129 mg/dLBorderline High LDL: 130-159 mg/dLHigh LDL: 160-189 mg/dLVery High LDL: greater than or equal to 190 mg/dL HDL Cholesterol 65 mg/dL [facility] Comment:Desirable HDL: great er than 40 mg/dL Note: This HDL assay may give artificially low results in patients with liver disease. Blood Venous blood specimen / Unknown 02/17/2023 9:32 AM EDT 02/17/2023 11:15 AM EDT Sonal Patel [facility] BLOOD ORDERABLES Final Resul t [facility] [address] [place] [address] [phone] from Last 3 Months or Most Recently Relevant to Health Maintenance Insurance [facility] Care Teams Staff Internist Office Based Only Relationship Specialty Start Date End Date Sonal Patel ANP [address] [place] [phone] PCP - General Family Medicine 07/25/22
--- OUTSIDE RECORDS SUMMARY | 2024-11-07 11:10 | XMS_ITS | Encounter Summary ---
Author Organization [employer] Address [address] [facility] 7t [place] [address] Care Team Providers Care Mutuel Clerk Name Role Phone Sonal Patel Primary Care Provider [phone] Encounter Details Date Type Department Care Team (Late st Contact Info) Description 02/04/2023 Telephone [facility] [address] [place], [place] [phone] Sonal Patel ANP [address] [place], [place] [phone] Social History Tobacco Use Types Packs/Day Years Used Date Smoking Tobacco: Never Smokeless Tobacco: Never Alcohol Use Standard Drinks/Week Comments Yes 0 (1 standard drink = 0.6 oz pur e alcohol) Depression Answer Date Recorded Patient Health Questionnaire-2 Score 0 01/02/2023 Sex and Gender Information Value Date Recorded Sex Assigned at Male 05/26/2022 10:17 AM EDT Legal Sex Male 10:17 AM EDT Gender Identity Male 05/26/2022 10:17 AM EDT Sexual Orientation Straight 05/26/2022 10 :17 AM EDT documented as of this encounter Miscellaneous Notes * Telephone Encounter - Alee Cates - 02/04/2023 11:55 AM EDT Tc from [facility] with S requesting status on orders for VNA services. Please contact [facility] at [phone] Fax number: [phone] documented in this encounter Plan of Treatment Not on file documented as of this encounter Visit Diagnoses Not on filedocumented in this encounter Care Teams Mutuel Clerk Relationship Specialty Start Date End Date Sonal Patel ANP [address] [place] [address] PCP - General Family Medicine 07/25/22 documented as of this encounter
--- OUTSIDE RECORDS SUMMARY | 2024-11-07 11:10 | XMS_ITS | Encounter Summary ---
Author Organization [employer] Address [address] [facility] 7t [place] [address] Care Team Providers Care Green Meat Packer Name Role Phone Sonal Patel Primary Care Provider [phone] Reason for Visit * Reason Comments Med Refill Encounter Details Date Type Department Care Team ([facility] st Contact Info) Description 07/13/2023 Refill [facility] [address] [place], [place] [phone] Sonal Patel ANP [address] [place], [place] [phone] Bilateral leg edema Social History Tobacco Use Types Packs/Day Years Used Date Smoking Tobacco: Never Smokeless Tobacco: Never Alcohol Use Standard Drinks/Week Comments Yes 0 (1 standard drink = 0.6 oz pur e alcohol) Housing Stability Answer Date Recorded What is your housing situation today? I have kristenfabián leblanc 05/12/[address] you li ve. Do you have problems with any of the following? None of the above 05/12/2023 Food Insecurity Answer Date Recorded Within the past 12 months, y ou worried that your food would run out before you got money to buy more: Never True 05/12/2023 Within the past 12 months,th e food you bought just didn't last and you didn't have enough money to get more: Never True Transportation Answer Date Recorded In the past 12 months, has l ack of transportation kept you from medical appts, meetings, work or from getting things needed for daily living? Yes, it has kept me from medical appointments or getting medications. 05/04/2023 Utilities Answer Date Recorded In the past 12 months, has t he electric, gas, oil or water company threatened to shut off services in your home? No 05/12/2023 Depression Answer Date Recorded Patient Health Questionnaire-2 Score 0 01/02/2023 Sex and Gender Information Value Date Recorded Sex Assigned at Male 05/26/2022 10:17 AM EDT Legal Sex Male 10:17 AM EDT Gender Identity Male 05/26/2022 10:17 AM EDT Sexual Orientation Straight 05/26/2022 10 :17 AM EDT documented as of this encounter Plan of Treatment Not on file documented as of this encounter Goals Goal Patient Goal Type Associated Problems Recent Progress Patient-Stated? Author Blood Pressure < 150/90 Blood Pressure 138/75( 024 10:18 AM EDT) No Thomas Rodarte documented as of this encounter Visit Diagnoses Diagnosis Bilateral leg edema Edema documented in this encounter Care Teams Green Meat Packer Relationship Specialty Start Date End Date Sonal Patel ANP [address] [place] [id number] PCP - General Family Medicine 07/25/22 documented as of this encounter
--- OUTSIDE RECORDS SUMMARY | 2024-11-07 11:10 | XMS_ITS | Encounter Summary ---
Author Organization [employer] Address [address] [facility] 7t [place] [address] Care Team Providers Care Biostatistics Professor Name Role Phone Frank Thomas MD Primary Care Provider Sonal Shen Primary Care Provider [phone] Encounter Details Date Type Department Care Team (Late st Contact Info) Description 07/15/2022 Orders Only [facility] [address] [place] [address] Codie Lopez LPN Social History Tobacco Use Types Packs/Day Years Used Date Smoking Tobacco: Never Assessed Sex and Gender Information Value Date Recorded Sex Assigned at Male 05/26/2022 10:17 AM EDT Legal Sex Male 10:17 AM EDT Gender Identity Male 05/26/2022 10:17 AM EDT Sexual Orientation Straight 05/26/2022 10 :17 AM EDT documented as of this encounter Plan of Treatment Not on file documented as of this encounter Procedures Procedure Name Priority Date/Time Associated Diagnosis Comments IRON AND TOTAL IRON BINDING CAPACITY Routine 02/17/2023 9:32 AM EDT FERRITIN Routine 02/17/2023 9:32 AM EDT documented in this encounter Results * Ferritin (02/17/2023 9:32 AM EDT) Ferritin 101 20 - 250 ng/mL [facility] 02/17/2023 9:32 AM EDT 02/17/2023 11:15 AM EDT us Sonal Patel ANP LAB BLOOD ORDERABLES Final Resul t Performing Organization Address [facility] [address]/[facility] Co de Phone Number [facility] [address] [place] [address] [phone] * Iron And Total Iron Binding Capacity (02/17/2023 9:32 AM EDT) Iron 133 45 - 160 mcg/dL [facility] Total Iron Binding Capacity 342 228 - 428 mcg/dL [facility] Percent Iron Saturation 39 15 - 50 % [facility] Unsaturated Iron Binding 209 ug/dL [facility] 02/17/2023 9:32 AM EDT 02/17/2023 11:15 AM EDT Sonal Patel ANP LAB BLOOD ORDERABLES Final Resul t Performing Organization Address [facility] [address]/[facility] Co de Phone Number [facility] [address] [place] [phone] documented in this encounter Visit Diagnoses Not on filedocumented in this encounter Care Teams Biostatistics Professor Relationship Specialty Start Date End Date Frank Thomas MD PCP - General Family Medicine 09/04/20 07/24/22 Sonal Patel ANP [address] [place] [address] PCP - General Family Medicine 07/25/22 documented as of this encounter
--- OUTSIDE RECORDS SUMMARY | 2024-11-07 11:10 | XMS_ITS | Encounter Summary ---
Author Organization [employer] Address [address] [facility] 7t [place] [address] Care Team Providers Care Bonderite Operator Name Role Phone Sonal Patel Primary Care Provider [phone] Encounter Details Date Type Department Care Team (Late st Contact Info) Description 05/28/2023 Abstract [facility] MED[facility]INE [address] [place], [place] [phone] Sonal Patel ANP [address] [place], [place] [phone] Social History Tobacco Use Types Packs/Day Years [...] on filedocumented in this encounter Care Teams Bonderite Operator Relationship Specialty Start Date End Date Sonal Patel ANP [address] [place] [phone] PCP - General Family Medicine 07/25/22 documented as of this encounter
== END ==
LOC: HO.CARD 09:57
PROVIDERS: PCP Nurse Practitioner Primary Care; Visit Provider Nurse Practitioner Family
DX: I35.0 Nonrheumatic aortic (valve) stenosis (principal)
CPT/HCPCS: 93306

== ENCOUNTER → 2024-11-07 10:01 | Outpatient (BNV) | payer OTHER, SELFPAY | PROVIDERS: PCP Nurse Practitioner Primary Care; Visit Provider Internal Medicine Cardiovascular Disease | DX: I35.2 Nonrheumatic aortic (valve) stenosis with insufficiency (principal); I35.8 Other nonrheumatic aortic valve disorders; I34.81 Nonrheumatic mitral (valve) annulus calcification; I36.1 Nonrheumatic tricuspid (valve) insufficiency | CPT/HCPCS: 93306 ==